=== PATIENT | male | born 1955 | race Caucasian/White ===

== ENCOUNTER 2023-10-05 13:50 | Inpatient (IN) | payer MEDICARE, SELFPAY ==
[2023-10-05] VITALS (26 sets, daily range): BP systolic 84–105; BP diastolic 62–73; BMI 17.5; BMI 17.3
[2023-10-05 10:16] LABS: Glucose - Point of Care 75 mg/dl (70-99)
--- NOTE | 2023-10-05 10:32 | CON.NEURO4 ---
Addendum entered and electronically signed by Bill Aguilar MD 10/05/23 12:17:
Studies reviewed.
I have personally examined the patient. I reviewed and agree with the FILM WRITER's Note.
My addenda:
Not awake, not alert, interactive on a single-occasion with rigorous stimulation to follow one request. No acute distress.
Speech: mute
Follows 1-step requests w/ difficulty. No tremor.
Extra-ocular movements: negative Doll's eyes.
Facial movements full and symmetric. Hearing intact to normal conversational volume.
Normal UE movements bilaterally. Minimal withdrawal to pain
Neck: full ROM.
Chest: no dyspnea
Heart: no JVD
Ext: (-) Clubbing, (-) Cyanosis, (-) Edema
IMPRESSIONS/RECOMMENDATIONS:
Abrupt onset of change in mental status. Undoubtably due to a metabolic cause either infectious or metabolic
check blood work and urinalysis for potential causes
no indication at this time for EEG, additional neuroimaging
hold sedative medications including Gabapentin, for now
Will continue to follow patient as needed.
Original Note:
Documented by User: Mariely Huang NP 10/05/23 11:39
Consultation - Neurology 4
-
CONSULTING PHYSICIAN: Bill Aguilar MD
REFERRING PHYSICIAN: ER/Dr. Villagran
DICTATED BY: PAMELA Brown
DATE/TIME OF REQUEST: 10/05/23
DATE/TIME OF CONSULTATION: 10/05/23
Reason for Consultation: Stroke Alert
History of Present Illness:
This is a 68-year-old male who has presented to the hospital after being found unresponsive on the ground by his family. LNW last night before bed (10/04/23). A stroke alert was activated in the ER due to unresponsiveness. CT head was obtained and
is negative for any acute abnormalities. Patient 'woke up' on the CT scan table and is now still very lethargic but able to follow simple commands. ER VS: 95.8 F, HR 65, BP 90/70, RR 12, 99% RA. ER Labs: WBC 1.7, Na 128, glucose 75. He has a history
of head/neck cancer and was using a Fentanyl patch and oxycodone, per PDMP, these were last filled 11/2021. He is only taking Remeron at bedtime occasionally now. An empty, unlabeled pill bottle was found in his pocket by nursing staff. He has a
history of DVT but is no longer on Eliquis for this. He has no known history of TIA or stroke, and he is not taking any blood thinning medications.
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
Surgical History: Lymphectomy
Family History: Reviewed and noncontributory.
Social History: Unknown.
Allergies: No known allergies.
Home Medications: See below.
Review of Symptoms:
Per the HPI. I am unable to obtain a complete review of systems�because of patient's inability to provide history.
Physical Exam:
The patient is afebrile, abdomen is flat, breathing is unlabored, skin is cool and dry, no edema.
NIH Stroke Scale:
I performed the NIH stroke scale on the patient on 10/05/23 at 1015. The patient scored 11 points on the NIH stroke scale assessment, which were assigned as follows: See below.
Neurologic Examination:
The patient is obtunded, responds to pain/loud voice. No verbal response. Follows a rare one-step command. On cranial nerve assessment, pupils are 4 mm bilateral, round and sluggish to light and accommodation. Negative dolls eyes. Gaze is midline.
EMIGDIO visual espinosa and EOMs. There is no facial asymmetry at rest. EMIGDIO tongue and uvula. Lifts bilateral upper extremities antigravity, no drift. Spontaneously moves bilateral lower extremities antigravity. No involuntary movement noted. Deep tendon
reflexes are 2+ bilateral upper and lower extremities and Babinski is absent bilaterally. EMIGDIO sensation and coordination.
Lab Results: See below.
Neuro Imaging:
1. CT Head 10/05/23: No acute intracranial abnormality identified. ASPECTS score 10.
Differentials for the patient's presentation include:
1. Toxic metabolic encephalopathy likely producing patient's symptomatology.
2. Very low concern for stroke producing patient's symptoms.
Patient has the following risk factors for their symptoms: Cancer, Remeron usage
IV Tenecteplase/IAT candidacy: Not a candidate due to unclear diagnosis, symptoms not consistent with stroke.
Recommendations:
-Urine drug screen, UA, alcohol level pending.
-Supportive care per ER.
-Do not see a role for further neurological imaging, if no improvement in mental status, will reconsider.
Discussed patient care with: Dr. Aguilar, Dr. Villagran
Vital Signs and Labs
-
Vital Signs and Labs:
Vital Signs
Temp Pulse Resp BP Pulse Ox
95.8 F L 65 12 90/70 99
10/05/23 10:31 10/05/23 10:08 10/05/23 10:08 10/05/23 10:08 10/05/23 10:08
Medications
-
Home Medications
Medication Instructions Recorded
fentanyl 25 mcg/hr transdermal 25 mcg transdermal Q72H Pain 11/10/21
patch
gabapentin 300 mg/6 mL (6 mL) oral 18 ml PO TID Pain 11/10/21
solution
oxycodone 5 mg/5 mL oral solution 5 mg PO Q4HPRN PRN breakthrough 11/10/21
pain
NIH Stroke Score
Subsequent NIH Scale
Date of Subsequent NIH Scale: 10/05/23
Time of Subsequent NIH Scale: 10:15
NIH Stroke Score
Level of Consciousness: 2 - Obtunded
LOC Questions: 2-Neither correct
LOC Commands: 2-Performs neither correctly
Best Horizontal Gaze: 0-Normal
Visual [place]spinosa: 0=Normal, no visual loss
Facial Palsy: 0=Normal, symmetrical
Motor - Right Arm: 0=No drift 10 seconds
Motor - Left Arm: 0=No drift 10 seconds
Motor - Right Le-Drift < 5 seconds
Motor - Left Le-Drift < 5 seconds
Limb Ataxia: UN-Amputation/jointfusion
Sensation: 0-Normal
Best Language: 3-Mute/global aphasia
Dysarthria: UN-Intubated, other
Extinction and Inattention: 0-No abnormality
Total Score:: 11

Documented by User: Bill Aguilar MD 10/05/23 11:58
NIH Stroke Score
NIH Stroke Score
Total Score:: 11
--- NOTE | 2023-10-05 10:41 | ED.GENMED ---
History of Present Illness
General
Chief Complaint: Unresponsive
Source: patient
Exam Limitations: none
Time Seen by Provider: 10/05/23 10:12
Nursing documentation reviewed up to this point in time: agreed with
Travel History
Have you had any contact with someone who has COVID-19?: No
Do you have any symptoms of coronavirus? Fever > 100 degrees, chills, cough, shortness of breath, sore throat, loss of taste or smell, muscle aches, or headache?: No
History of Present Illness
History of Present Illness:
68-year-old male presents emergency department due to decreased responsiveness.
Past History
Past History
ED Past Medical History: Cancer (head and neck)
ED Past Surgical History: Other (PEG tube, port placed)
Social History
Tobacco: Non-smoker
Alcohol: None
Drug: None
Personal:
Living: with family
Review of Systems
Review of Systems
Allergies reviewed?: Yes
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
All Other Systems: Not applicable
Phy Exam
Physical Exam
Physical Exam:
Physical Exam
General: Obtunded, not responsive but occasionally moving and fighting against medical therapies
Neck: supple. no meningeal signs. normal posterior pharynx
Heart: s1/s2 regular rate and rhythm, no murmur. equal radial
pulses.
HEENT: Pupils equal round reactive to light, EOMI
Lungs: no acute respiratory distress. clear bilaterally
Abdomen: normal bowel sounds. not tender. no CVAT
Neuro: Obtunded, moving all extremities. No focal neurological deficits cranial nerves II through XII intact
Skin: no rash
Psychiatric: well kept.
Extremities: no edema. no calf tenderness. negative homans. good distal pulses
Course
Orders/Labs/Results
Orders:
Orders
10/05/23 Lunch
NPO
Allow oral meds: No
Allow clear liquids: No
NPO with Ice Chips: No
10/05/23 10:13
Electrocardiogram (*1) Urgent
Reason for Study: Bradycardia / Tachycardia
CT Head W/o Cont STROKE ALERT Urgent
Reason For Exam: unresponsive since this morning.
10/05/23 10:14
EKG- Treatment ONCE
10/05/23 10:19
Alcohol Urgent
Complete Blood Count/With Diff Urgent
Comprehensive Metabolic Panel Urgent
Cortisol, Random Urgent
Comment: ADD
Free T4 Urgent
Prothrombin Time Urgent
Serum Osmolality Urgent
TSH Reflex To Free T4 Urgent
Comment: ADD
10/05/23 10:57
0.9% Sodium Chloride 1000 ml [Nss] 1,000 ml IV BOLUS
10/05/23 11:15
Fentanyl, Urine Urgent
Lactic Acid Q4H
Comment: ON ICE, CANCEL 2ND ORDER IF FIRST LACTIC ACID LEVEL <2
Osmolality, Random Urine Urgent
Date Specimen was Collected: 10/05/23
Time Specimen was Collected: 10:42
Comment: ADD
Urinalysis Reflex To Culture Urgent
Date Specimen was Collected: 10/05/23
Time Specimen was Collected: 10:42
Urine Drug Abuse Screen Urgent
Date Specimen was Collected: 10/05/23
Time Specimen was Collected: 10:42
Urine Sodium Urgent
Date Specimen was Collected: 10/05/23
Time Specimen was Collected: 10:42
Comment: ADD
10/05/23 12:38
Add On- LAB Urgent
Tests Added?: tsh with free t4,urine na, urine osmo, serum osmo,random cortisol
Blood Culture Q30M
ROBSON Source: Blood/Venous
Specimen Description:
Comment: FROM 2 SEPARATE SITES
10/05/23 12:39
Blood Culture Q30M
[facility] Source: Blood/Venous
Specimen Description:
Comment: FROM 2 SEPARATE SITES
10/05/23 12:41
Add On- LAB Urgent
Tests Added?: alcohol
10/05/23 13:22
HEMATOLOGY CONSULT Routine
Consulting Provider: Mirian Andrade
Was physician already notified: Yes
Reason for consult: Acute leukopenia, possible sepsis, history head and neck cancer
NEPHROLOGY CONSULT Routine
Consulting Provider: Ricky Moses
Was physician already notified: Yes
Reason for consult: Hyponatremia, hypotension, possible sepsis
PSYCHIATRY CONSULT Routine
Consulting Provider: Homero Kong
Was physician already notified: Yes
Reason for consult: Failure to thrive, depression also here with possible sepsis, hypotension
COVID-19 Antigen Urgent
Source: Nasal Swab
Influenza A+B Rapid Molecular Urgent
RO[facility]ON Source: Nasal Swab
Specimen Description:
10/05/23 13:27
Admit/Transfer Patient As Directed
Co-Sign Provider:
Level of Care: Inpatient admission
Assign to:: IMU- Intermediate Care
Physician / Group: larry montaño
Diagnosis: Leukopenia possible sepsis, unresponsive possible benzo use, hypoNA , FTT
Reason for Hospitalization: Leukopenia possible sepsis, unresponsive possible benzo use, hypoNA , FTT
Expected length of stay greater than two midnights?: Yes
ELOS- Estimated Length of Stay in days: 4
I certify the patient meets the requirements for IP care: Yes
Code Status As Directed
Resuscitation Status: Full Code
10/05/23 13:30
0.9% Sodium Chloride 1000 ml [Nss] 1,000 ml IV 1,000 mls/hr
CR Chest Portable - 1 View Urgent
Comment:
Reason For Exam: Unresponsive possible sepsis
Reason Study Needs to be Portable: Patient Unstable
10/05/23 14:26
Activity As Directed
Activity Level: As Tolerated
Advance Diet as Tolerated As Directed
Goal Diet: Regular
Comment: when pt is more alert do bedside swallow then may advance as tolerated
Intake/ Output As Directed
Frequency: Per unit guidelines
Pneumatic Compression Sleeves As Directed
Type: Knee high
Vital Signs As Directed
Frequency: Per unit guidelines
Weight As Directed
Frequency: Daily
Pulse Ox/spot Check [RESP] Routine
Quantity: 1
Ot Eval And Treat Routine
Pt Eval And Treat Routine
Activity Level: As Tolerated
DX Deep Vein Thrombosis Video Routine
10/05/23 14:30
Lactic Acid Q4H
Comment: ON ICE, CANCEL 2ND ORDER IF FIRST LACTIC ACID LEVEL <2
10/06/23 06:00
Complete Blood Count/With Diff IN AM
Comprehensive Metabolic Panel IN AM
10/06/23 09:00
DIETARY CONSULT Routine
Reason for Consult: wt loss ftt
10/07/23 06:00
Complete Blood Count/With Diff IN AM
Comprehensive Metabolic Panel IN AM
10/08/23 06:00
Complete Blood Count/With Diff IN AM
Comprehensive Metabolic Panel IN AM
Abnormal Lab Results
10/05/23 10/05/23
10:19 11:15
WBC 1.7 L* 10^3/uL
(4.8-10.8)
RBC 3.70 L 10^6/uL
(4.70-6.10)
Hgb 11.8 L g/dL
(13.0-18.0)
Hct 32.3 L %
(39.0-52.0)
MCH 31.9 H pg
(27.0-31.0)
Plt Count 119 L 10^3/uL
(130-400)
Absolute Neuts (auto) 1.0 L 10^3/uL
(1.4-6.5)
Absolute Lymphs (auto) 0.4 L 10^3/uL
(1.2-3.4)
Immature Gran % 1.8 H %
(0-0.5)
Monocytes % 10.9 H %
(1.7-9.3)
PT 15.3 H Sec
(11.4-14.6)
Sodium 128 L mmol/L
(135-145)
Chloride 94 L mmol/L
(98-107)
Serum Osmolality 274 L mOsm/kg
(275-300)
Alkaline Phosphatase 34 L U/L
(38-126)
Total Protein 4.9 L g/dl
(6.3-8.2)
Albumin 2.9 L g/dl
(3.5-5.0)
TSH (Reflex) 5.02 H uIU/ml
(0.47-4.68)
Urine Ketones 1+ A
(Negative)
Urine Sodium 10 L mmol/L
(30-90)
U Benzodiazepines Scrn Positive H
(Negative)
10/05/23 10:19
10/05/23 10:19
Vital Signs
Initial and Last Documented VS:
Initial Vital Signs
Pulse Resp BP Pulse Ox
65 12 90/70 99
10/05/23 10:08 10/05/23 10:08 10/05/23 10:08 10/05/23 10:08
Last Documented Vital Signs
Temp Pulse Resp BP Pulse Ox
94.6 F L 44 9 92/66 99
10/05/23 14:51 10/05/23 15:00 10/05/23 15:00 10/05/23 14:51 10/05/23 15:00
MDM/Problems Addressed
Differential Diagnosis Includes:
Overdose, infection, hyponatremia
MDM/Problems Addressed:
68-year-old male with hyponatremia, hypotension, depression, head neck cancer in remission, neutropenia. Admit to hospitalist.
Chronic conditions affecting care: Cancer (Head neck cancer) and Other (Neutropenia)
Acute Exacerbation and/or Progression of Chronic Illness: Cancer (Head neck cancer) and Other (Neutropenia)
*Radiology
Radiology exam reviewed: radiology read reviewed (CT head no acute findings)
*Pulse Oximetry
Patient hypoxic: no
*EKG
Interpreted by ED Provider?: Yes
EKG Intrepretation Date: 10/05/23
EKG Intrepretation Time: 10:10
Interpretation: normal
Comparison EKG: no comparison EKG present
Heart Rate: 63
Rate: normal
Rhythm: sinus
[place]: left axis deviation
Interval: normal interval
QRS Pattern: normal QRS
Ischemia: no ischemia
*Talent Consultant Interpretation
Rate: normal
Interpretation: normal
Heart Rate: 61
Rhythm: sinus
*Critical Care Note
Total Time (30-74mins, 75-104mins- exclusive of procedures): 30
comment:
Critical care statement: A total of 30 minutes of critical care time was provided for this patient. This includes management of unstable vital signs, evaluation of the patient at bedside, reviewing the patient's pertinent medical records, discussion
with consultants, review of old EKGs and review of pertinent medical records. This time with separate from time utilized to perform the aforementioned documented procedures
Data Reviewed
Review of Other/Old Records Reveals: Labs (Prior WBC 3.2)
Source: records
Patient Management
Social determinants of health affecting care: Living situation
Discussion with other providers: Hospitalist
Escalation/DeEscalation of care consider admission/obs:
Admit indicated
ED Attending Note
-
Portions of this chart may have been created with voice recognition software.� Occasional wrong word or��sound alike� substitutions may have occurred due to the inherent limitations of voice recognition software.
Discharge Plan
Departure
Patient Disposition: Admit
Date of Disposition: 10/05/23
Time of Disposition: 11:40
Admit to: ICU
Presentation/result/management discussed w/ accepting MD/DO: Hospitalist
Patient with high blood pressure during this ER visit?: No
Condition: Fair
Discharge Problem:
Acute alteration in mental status, Leukopenia, Hypothermia, Acute hyponatremia
Interventions
Interventions:
*Risk Screen - Suicide Last Done: 10/05/23 10:08
*General Assessment Last Done: 10/05/23 10:08
*Neglect/Abuse Screening Last Done: 10/05/23 10:08
*Nursing Disposition Last Done: 10/05/23 14:31
ED- Neurological Assessment Last Done: 10/05/23 10:29
Discharge Date and Time
Discharge Date/Time: 10/05/23 14:32
[2023-10-05 10:43] LABS: INR 1.18; PT 15.3 Sec (11.4-14.6)
[2023-10-05 10:44] LABS: ALT (SGPT) 19 U/L (0-50); AST (SGOT) 36 U/L (17-59); Albumin 2.9 g/dl (3.5-5.0); Alkaline Phosphatase 34 U/L (38-126); Blood Urea Nitrogen 14 mg/dl (9-20); Calcium 8.6 mg/dl (8.4-10.2); Carbon Dioxide 30 mmol/L (22-30); Chloride 94 mmol/L (98-107); Glucose 70 mg/dl (70-99); Potassium 3.7 mmol/L (3.5-5.1); Sodium 128 mmol/L (135-145); Total Bilirubin 0.9 mg/dl (0.2-1.3); Total Protein 4.9 g/dl (6.3-8.2); eGFR > 60.00
[2023-10-05 10:50] LABS: % Basophils 1.2 % (0-2); % Eosinophils 1.8 % (0-6); % Immature Granulocytes 1.8 % (0-0.5); % Lymphocytes 21.2 % (20.5-51.1); % Monocytes 10.9 % (1.7-9.3); % Neutrophils 63.1 % (42.2-75.2); Absolute Lymphocytes 0.4 10^3/uL (1.2-3.4); Absolute Monocytes 0.2 10^3/uL (0.1-0.6); Hematocrit 32.3 % (39.0-52.0); Hemoglobin 11.8 g/dL (13.0-18.0); Mean Corp Hgb Conc. 36.5 g/dL (33.0-37.0); Mean Corpuscular Hgb 31.9 pg (27.0-31.0); Mean Corpuscular Volume 87.3 fL (80.0-94.0); Mean Platelet Volume 9.9 fL (7.4-10.4); Nucleated Red Blood Cells % 0 % (-); Platelet Count 119 10^3/uL (130-400); Red Cell Dist. Width 13.2 % (11.5-14.5)
[2023-10-05 10:57] LABS: White Blood Cell Count 1.7 10^3/uL (4.8-10.8)
[2023-10-05] MEDS: NSS 1000 IV (11:18)
[2023-10-05 11:50] LABS: Urine Albumin Negative (Neg - Trace); Urine Bilirubin Negative (Negative); Urine Character Clear (Clear); Urine Color Yellow; Urine Glucose Negative (Negative); Urine Ketone 1+ (Negative); Urine Leukocyte Negative (Negative); Urine Nitrite Negative (Negative); Urine Occult Blood Negative (Negative); Urine Urobilinogen Negative (Neg - 1+); Urine pH 6.5 (5.0-9.0)
[2023-10-05 12:04] LABS: Amphetamines Negative (Negative); Barbiturates Negative (Negative); Benzodiazepines Positive (Negative); Buprenorphine Negative (Negative); Cocaine Negative (Negative); Marijuana Negative (Negative); Methadone Negative (Negative); Methamphetamines Negative (Negative); Opiates Negative (Negative); Phencyclidine Negative (Negative); Tricyclic Antidepressants Negative (Negative)
--- NOTE | 2023-10-05 12:36 | HPS.HSE ---
Addendum entered and electronically signed by Ahsan Mcmillan MD 10/05/23 21:11:
I independently saw and examined the patient on 10/05/23.
The GRAIN PROCESSOR's note was reviewed and I agree with the note.
Comment:
68-year-old male with past medical history of early stage head/neck cancer, treated with cisplatin/RT in early 2021 (JOSE since), previous PEG placement (PEG tube was reversed, now able to take PO), nasal bone fracture September 28, 2023, Hx DVT LLE
(no longer on Eliquis), depression, HLD, hypomagnesemia, anemia, leukopenia and major depression presented after being found unresponsive by his family. A stroke alert was called in the ER, but when patient was in the CT scan department he
apparently woke up for a little. Patient was also found to have bradycardia and low blood pressure after admission, which patient's family said is from before. He was given atropine and Narcan en route to the hospital but remained mainly
unresponsive. He was also noted to be hypothermic 95.8 F. Patient's reported that patient is drinking 2 ensures per day and eating a total of 2400 fredy although is continuing to lose weight with an additional 20 pounds over the last 3 months and
a total of 54 pounds in the past 7 months and he has a lack of interest in bathing showering and any socialization. Patient is not on any benzodiazepines, but his has a prescription for Xanax he knows where it is located and possibly could have
taken last night.
Vital Signs: Hypothermic, Bradycardia at times in the 40s and 50s bpm, SBP in the 80s and 90s, 90-100% on room air
Physical Exam
General: Other (Unresponsive)
HEENT: Normocephalic
Respiratory: Clear
Cardiac: S1/S2 and Bradycardia
GI: Soft, Non Tender, Non Distended, Hypoactive bowel sounds
Musculoskeletal: No Cyanosis and No Edema
Skin: Warm, Dry and Rash (Seborrheic dermatitis to scalp and chest)
Neuro: Other (Unresponsive)
Assessment/Plan
#Acute Toxic Metabolic Encephalopathy Suspected due to Benzodiazepene vs. other
#Hypothermia
#Hypotension
#Pancytopenia
WBC 1.7, differential pending, PLT 117
95.8 F, 90/68, HR 53, 96% RA
-Blood cultures x 2, UA and CXR unrevealing for infection
-give total 2000 cc bolus(patient received 1 L by EMS and 1 L in ER) will continue IV NSS 80 cc an hour is still is hypotensive
-Loni hugger
-Follow CBC, BMP
-Consult Onc
-Hold on sedative medications
-Monitor closely in IMU
#Unresponsive possibly secondary to benzodiazepine use
Benzodiazepine use on urine drug screen
- UDS + for benzos
-Neurochecks every [address] head: No acute intracranial abnormality
#Failure to thrive with weight loss
# Acute on chronic depression
Hold mirtazapine 15 mg at bedtime due to unresponsiveness
-Weight loss 20 pounds in the last 3 months and 52 pounds since November 2021 was 181 LBS now 129.3 LBS
- reports is eating 2400 fredy with 2 ensures
-Consult Psychiatry when patient is awake
#Hyponatremia
NA 128
Check TSH with free T4 reflex, urine NA, urine Osmo, serum Osmo, random cortisol
-Consult Nephro
#Seborrheic dermatitis to scalp and chest secondary to not bathing
- reports patient is very depressed and refuses to shower
-Recommend Selsun Blue to hair and chest for or patient to use with soft bristle brush
-Recommend shower chair
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
#Treated with chemo 8 rounds and radiation 35 rounds-finished in 2021
#Had resection of squamous cell carcinoma oropharynx at [facility]
-Follows with Dr. Davies
CT chest abdomen pelvis with IV contrast 09/29/2023
No evidence of metastatic disease or adenopathy in the chest abdomen or pelvis
Large volume feces throughout the colon and rectum suggesting constipation
DDD C7-T1, L2-3 and L3-4
#Dysphagia Hx
Hx PEG tube November 2021 with removal November 2022
-Eats regular diet with 2 Ensure per day
-Consult dietary
#Recent nasal bone fracture from fall
#History of DVT LLE (no longer on Eliquis)
#Hyperlipidemia
#History of Hypomagnesemia
DVT prophylaxis
SCDs
Full code per Tiffanie at bedside
Original Note:
Family Physician
-
Family Physician: INTERVIEWE UNKNOWN - PT NOT
Chief Complaint
-
Unresponsive
History of Present Illness
68-year-old male from home brought by EMS for unresponsiveness and bradycardia. He was given atropine and Narcan en route but remains unresponsive. He was noted to be hypothermic 95.8 F in the ER hypotensive
90/58 and bradycardic with a heart rate of 53. His Tiffanie is at bedside and states that he has been taking Remeron at night to help him sleep but also help with his depression and increased his appetite. She reports he is drinking 2 ensures
per day and eating a total of 2400 fredy although is continuing to lose weight with an additional 20 pounds over the last 3 months and a total of 54 pounds in the past 7 months. He has lack of interest in bathing showering and any socialization. His
urine drug screen did come back for positive benzos. He is not on any benzodiazepines, but his has a prescription for Xanax he knows where is located and possibly could have taken last night. He had a recent CT chest abdomen and pelvis a week
ago that was negative for metastatic disease he has past medical history of head and neck cancer, 8 rounds of chemo and 35 rounds of radiation major depressive disorder, dysphagia requiring PEG tube placement November 2021 with removal 2022 HLD, nasal
bone fracture September 28, 2023, hypomagnesemia.
Medical History
Past Medical History
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
2022 HLD, nasal bone fracture September 28, 2023, hypomagnesemia)
Past Surgical History: Reports Other (PEG tube insertion November 2021 with removal 2022)
Social History
Tobacco: Non-smoker
Alcohol: None
Drug: None
Personal:
Living: With Family
Employment: Retired
Family History
Family History: Unable to Obtain
Allergies / Home Medications
Allergies reflects when Allergies were last updated in [facility].
Home Medications with original date entered in [facility]
Allergy/Medication List:
Allergies
Allergy/AdvReac Type Severity Reaction Status Date / Time
No Known Allergies Allergy Unverified 08/19/23 19:21
Home Medications
Isotonix Antioxidant Powder 1 dose PO DAILY 10/05/23
Isotonix B-Complex Powder 1 dose PO DAILY 10/05/23
Isotonix Calcium Plus Powder 1 dose PO DAILY 10/05/23
Isotonix Multivitamin Powder 1 dose PO DAILY 10/05/23
Isotonix Vitamin D3 Powder 1 dose PO DAILY 10/05/23
mirtazapine 15 mg tablet 15 mg PO HS 10/05/23
polyethylene glycol 3350 17 gram oral powder packet (Miralax) 17 g PO DAILY PRN constipation 10/05/23
Review of Systems
-
History Source: Family ( Tiffanie at bedside giving review of systems)
A 12 point ROS was completed and negative except as noted: Yes
Constitutional: Reports Fever (Hypothermia), Fatigue and Chills
EENT: Denies Sore Throat or Runny Nose
Respiratory: Denies Cough or Trouble Breathing
Cardiac: Denies Chest Pain, Diaphoresis or Syncope
Abdomen/GI: Denies Abdominal Pain, Nausea, Vomiting or Diarrhea
: Denies Dysuria, Frequency, Flank Pain or Incontinence
Musculoskeletal: Denies Joint Pain or Edema
Skin: Reports Rash (Seborrheic dermatitis to scalp and chest); Denies Itching
Neurological: Reports Weakness (Generalized); Denies Dizzy or Headache
Endocrine: Reports No Symptoms
Hematologic/Lymphatic: Reports No Symptoms
Psych: Reports Depression ( reports is depressed lack of bathing showering lack of interest in activities, weight loss)
Physical Exam
Vital Signs
Vital Signs
Temp Pulse Resp BP Pulse Ox
95.8 F L 53 8 90/68 96
10/05/23 10:31 10/05/23 11:15 10/05/23 10:28 10/05/23 11:15 10/05/23 10:49
Physical Exam
General: Other (Unresponsive)
HEENT: NormoCephalic, Anicteric, PERRLA (4 mm bilaterally), [place] Conjunctivae and No Ptosis
Respiratory: Clear; No Wheezes, Rales or Rhonchi
Cardiac: S1/S2 and Bradycardia; No Murmur, Rub, Gallop or Peripheral Edema
Breast: Deferred by me
GI: Soft, Non Tender, Non Distended, Normal Bowel Sounds and No Hepatosplenomegaly
Rectal: Deferred by Provider
Genito-urinary: Deferred by me
Musculoskeletal: No Clubbing, No Cyanosis and No Edema
Skin: Warm, Dry and Rash (Seborrheic dermatitis to scalp and chest)
Neuro: Other (Unresponsive, obtunded); No Tremors
Psych: Depressed (Per ) and Other (Unresponsive)
Laboratory Results
-
10/05/23 10:19
10/05/23 10:19
Laboratory Results
PT 15.3 Sec (11.4-14.6) H 10/05/23 10:19
INR 1.18 10/05/23 10:19
Lactic Acid 1.0 mmol/L (0.7-2.0) 10/05/23 11:15
Total Bilirubin 0.9 mg/dl (0.2-1.3) 10/05/23 10:19
AST 36 U/L (17-59) 10/05/23 10:19
ALT 19 U/L (0-50) 10/05/23 10:19
Alkaline Phosphatase 34 U/L (38-126) L 10/05/23 10:19
Impression/Plan
-
Impression/plan:
Admit to [facility]
#Sepsis with acute hypothermia unclear source
#Acute on chronic neutropenia/chronic thrombocytopenia
WBC 1.7, differential pending, PLT 117
95.8 F, 90/68, HR 53, 96% RA
-Blood cultures x 2, UA [employer], CXR
-give total 2000 cc bolus(patient received 1 L by EMS and 1 L in ER) will continue IV NSS 80 cc an hour is still is hypotensive
-Consider Loni hugger
-Follow CBC, BMP
-Consult Onc
-Hold on current antibiotics until possible source of infection is found
EKG: NSR 63 bpm, QTc 474 MS
#Unresponsive possibly secondary to benzodiazepine use
Benzodiazepine use on urine drug screen
- UDS + for benzos
-Neurochecks every [address] head: No acute intracranial abnormality
#Failure to thrive with weight loss
# Acute on chronic depression
Hold mirtazapine 15 mg at bedtime due to unresponsiveness
-Weight loss 20 pounds in the last 3 months and 52 pounds since November 2021 was 181 LBS now 129.3 LBS
- reports is eating 2400 fredy with 2 ensures
-Consult Psychiatry when patient is awake
#Hyponatremia
NA 128
Check TSH with free T4 reflex, urine NA, urine Osmo, serum Osmo, random cortisol
-Consult Nephro
#Seborrheic dermatitis to scalp and chest secondary to not bathing
- reports patient is very depressed and refuses to shower
-Recommend Selsun Blue to hair and chest for or patient to use with soft bristle brush
-Recommend shower chair
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
#Treated with chemo 8 rounds and radiation 35 rounds-finished in 2021
#Had resection of squamous cell carcinoma oropharynx at [facility]
-Follows with Dr. Davies
CT chest abdomen pelvis with IV contrast 09/29/2023
No evidence of metastatic disease or adenopathy in the chest abdomen or pelvis
Large volume feces throughout the colon and rectum suggesting constipation
DDD C7-T1, L2-3 and L3-4
#Dysphagia Hx
Hx PEG tube November 2021 with removal November 2022
-Eats regular diet with 2 Ensure per day
-Consult dietary
#Nasal bone fracture August 2023 from fall
DVT prophylaxis
SCDs
Full code per Tiffanie at bedside
[2023-10-05 13:00] LABS: Fentanyl, Urine Negative (Negative)
[2023-10-05 13:45] LABS: COVID-19 Antigen Negative (Negative)
[2023-10-05 13:54] LABS: Urine Sodium 10 mmol/L (30-90)
[2023-10-05 14:00] LABS: Alcohol None Detected
--- NOTE | 2023-10-05 14:13 | CON.ONC ---
Impression
Impression
* Unresponsive; sepsis and/or benzodiazepine overuse
* Pancytopenia
* Failure to thrive
* Oropharyngeal squamous cell carcinoma, in remission
Plan
Plan
Unresponsive; sepsis and/or benzodiazepine overuse
- Urine benzodiazepine screen was positive on admission on 10-05-23.
- Staff found an empty pill bottle in his pocket when he was brought in.
- He has been hypothermic, bradycardic and hypotensive since admission.
- He does not have a prescription for a benzodiazepine and only takes mirtazapine at bedtime to help him fall asleep.
- His reports that he has experienced a similar episode of unresponsiveness in 2018, when he took too much of Ativan 'to help him sleep'.
- His does have a prescription for Xanax, which he has access to.
- Of note, per PDMP, he was previously using a fentanyl patch and oxycodone last filled in 11/2021.
- Urine BZD screens have poor sensitivity and specificity for BZD toxicity.
- Pending blood culture results.
Pancytopenia
- WBC 1.7, RBC 3.7, HGB 11.8, PLT 119 on admission.
- He has a history of intermittent pancytopenia since at least 2021.
- Pancytopenia can be exacerbated in setting of sepsis/infection; pending blood cultures.
- Failure to thrive possibly contributory.
- Follow CBC.
Failure to thrive
- He developed dysphagia, likely a sequelae from treatment of the SCC.
- He has had a loss of appetite and progressive weight loss since at least 2017.
- He has lost around 20 pounds over the last 3 months; a total of 54 pounds in the past 7 months.
- He drinks 2 ensures per day, and tries to consume about 2400 fredy but has continued to lose weight.
- He is unable to tolerate solid foods and foods with certain textures, and has a limited diet.
- He was hospitalized for significant protein calorie malnutrition in 2021 and required a PEG tube placement for dysphagia (removed in 2022).
- Dysphagia has persisted, and he has to make an active effort to swallow food according to the .
- Can consider placing the PEG tube again when stable.
Oropharyngeal squamous cell carcinoma, in remission
- He underwent 8 rounds of chemo and 35 rounds of radiation for the squamous cell carcinoma.
- Resection at [facility].
- CT CAP from 09-29-23 did not demonstrate any evidence of metastatic disease or adenopathy, and continues to be in remission.
Patient History
History of Present Illness
Fernando Yeung, 68 year-old male, was brought to the emergency on 10-05-23 after he was found unresponsive in the morning. He was noted to be hypothermic, hypotensive and bradycardic. Received atropine and naloxone en route to the hospital but
remained unresponsive. Urine benzodiazepine screen was positive, and CT head was unremarkable. His medical history is significant for oropharyngeal squamous cell carcinoma in remission. He had an empty pill bottle in his pocket when he was brought
in. He does not have a prescription for a benzodiazepine and only takes mirtazapine at bedtime to help him fall asleep. His reports that he has experienced a similar episode of unresponsiveness in 2018, when he took too much of Ativan 'to help
him sleep'. His has a prescription for Xanax; he knows where it is located and she is not sure if he took some. He was using a fentanyl patch and oxycodone, per PDMP, which were last filled in 11/2021.
He has had a loss of appetite and progressive weight loss since at least 2017. This has gotten considerably worse in the past few months. He has lost around 20 pounds over the last 3 months; a total of 54 pounds in the past 7 months. He drinks 2
ensures per day, and tries to consume about 2400 fredy but has continued to lose weight. He is unable to tolerate solid foods and foods with certain textures, and has a limited diet. He was hospitalized for significant protein calorie malnutrition in
2021 and required a PEG tube placement for dysphagia (removed in 2022). Dysphagia has persisted, and he has to make an active effort to swallow food according to the . He underwent 8 rounds of chemo and 35 rounds of radiation for the squamous
cell carcinoma. CT CAP from 09-29-23 did not demonstrate any evidence of metastatic disease or adenopathy, and continues to be in remission. He has had intermittent pancytopenia since at least 2021, and was pancytopenic on admission.
Past-Medical/Surgical History
PMH: oropharyngeal squamous cell carcinoma, anemia, leukopenia, major depression
PSH: PEG placement, SCC resection
Patient Medication
Medication Instructions Recorded Confirmed Last Taken Type
Isotonix Antioxidant Powder 1 dose PO DAILY Supplement 10/05/23 10/05/23 10/04/23 History
Isotonix B-Complex Powder 1 dose PO DAILY Supplement 10/05/23 10/05/23 10/04/23 History
Isotonix Calcium Plus Powder 1 dose PO DAILY Supplement 10/05/23 10/05/23 10/04/23 History
Isotonix Multivitamin Powder 1 dose PO DAILY Supplement 10/05/23 10/05/23 10/04/23 History
Isotonix Vitamin D3 Powder 1 dose PO DAILY Supplement 10/05/23 10/05/23 10/04/23 History
mirtazapine 15 mg tablet 15 mg PO Mental Health 10/05/23 10/05/23 Unknown History
polyethylene glycol 3350 17 gram 17 g PO DAILY PRN constipation 10/05/23 10/05/23 Unknown History
oral powder packet (Miralax)
Active Medications
Generic Name Dose Route Start Last Admin
Trade Name Freq PRN Reason Stop Dose Admin
Sodium Chloride 1,000 mls @ 80 mls/hr 10/05/23 14:15
Nss IV
.[id number] ALEX
Review of Systems
-
Unable to obtain full review of systems at this time due to: Other (patient unresponsive)
History Source: Family ()
Constitutional: Reports Weight Loss, No Appetite, Fatigue and Sleep Disturbance
GI: Reports Anorexia
Skin: Reports Itching and Rash
Psych: Reports Depressed and Sad
Physical Exam
-
General: Appears Chronically Ill and Cachetic
HEENT: Moist Mucous Membranes
Cardiology: Normal Sinus Rhythm, S1, S2 and No Murmur
Pulmonary: Clear
GI: Soft
Musculoskeletal: No Clubbing, No Cyanosis and No Edema
Neurology: Other (obtunded)
Skin: Rash (seborrheic dermatitis) and IV Access / Catheter Site
Psych: Depressed (per )
Labs
Lab Results
WBC 1.7 10^3/uL (4.8-10.8) L* 10/05/23 10:19
RBC 3.70 10^6/uL (4.70-6.10) L 10/05/23 10:19
Hgb 11.8 g/dL (13.0-18.0) L 10/05/23 10:19
Hct 32.3 % (39.0-52.0) L 10/05/23 10:19
MCV 87.3 fL (80.0-94.0) 10/05/23 10:19
MCH 31.9 pg (27.0-31.0) H 10/05/23 10:19
MCHC 36.5 g/dL (33.0-37.0) 10/05/23 10:19
RDW 13.2 % (11.5-14.5) 10/05/23 10:19
Plt Count 119 10^3/uL (130-400) L 10/05/23 10:19
MPV 9.9 fL (7.4-10.4) 10/05/23 10:19
Abs Immat Gran (auto) 0.0 10^3/uL (0-0.05) 10/05/23 10:19
Absolute Neuts (auto) 1.0 10^3/uL (1.4-6.5) L 10/05/23 10:19
Absolute Lymphs (auto) 0.4 10^3/uL (1.2-3.4) L 10/05/23 10:19
Absolute Monos (auto) 0.2 10^3/uL (0.1-0.6) 10/05/23 10:19
Absolute Eos (auto) 0.0 10^3/uL (0-0.7) 10/05/23 10:19
Absolute Basos (auto) 0.0 10^3/uL (0-0.2) 10/05/23 10:19
Immature Gran % 1.8 % (0-0.5) H 10/05/23 10:19
Neutrophils % 63.1 % (42.2-75.2) 10/05/23 10:19
Lymphocytes % 21.2 % (20.5-51.1) 10/05/23 10:19
Monocytes % 10.9 % (1.7-9.3) H 10/05/23 10:19
Eosinophils % 1.8 % (0-6) 10/05/23 10:19
Basophils % 1.2 % (0-2) 10/05/23 10:19
Creatinine 0.7 mg/dL (0.7-1.3) 10/05/23 10:19
Vital Signs
Vital Signs
Temp Pulse Resp BP Pulse Ox
95.8 F L 53 8 90/68 96
10/05/23 10:31 10/05/23 11:15 10/05/23 10:28 10/05/23 11:15 10/05/23 10:49
--- NOTE | 2023-10-05 14:21 | CON.MD ---
Consultation - Medical
-
Assessment
-hyponatremia
-hypotension
-FTT
-depression
-head and neck CA remission
-neutropenia
-recent nasal fracture
Plan
-D5NS, as hyponatremia appears to be hypovolemic due to low solute
-follow BMP
-If Na falls, can use 3%NaCl
-encourage po intake, may need evaluation for depression
-d/w
-[id number]
[2023-10-05 14:38] LABS: Osmolality Urine 472 mOsm/kg (300-900)
[2023-10-05 15:15] LABS: TSH Reflex To Free T4 5.02 uIU/ml (0.47-4.68)
[2023-10-05 15:16] LABS: Osmolality Serum 274 mOsm/kg (275-300)
[2023-10-05] MEDS: D5/0.9% SODIUM CHLORIDE 1000 IV (15:16)
--- NOTE | 2023-10-05 15:53 | PTCARENOTE ---
Received patient from ED. Patient minimally responsive. Patient opens eyes with voice. Trying to speak but speech is garbled, difficult to make out words. Rectal temp 94.6, bp 92/66,44, 9, 100% ra. Spoke to Ivon and nursing update give.
SB on monitor. Will continue to monitor frequently.
[2023-10-05 16:33] LABS: Free T4 1.03 ng/dl (0.78-2.19)
[2023-10-05 16:47] LABS: Cortisol, Random 13.9 ug/dl
--- NOTE | 2023-10-05 18:09 | PTCARENOTE ---
Patient continue with low temperature. Dr. Mcmillan notified and order obtained for temo mckinney. Last bp was 96.0 and obtained axillary and obtained under left arm.
--- NOTE | 2023-10-05 20:31 | PTCARENOTE ---
temp 98.4- bear hugger turned off- pt ax1- lethargic and minimally responsive- bp 88/69- sinus did answer basic questions regarding comfort after much encouragement- at bedside- support given
--- NOTE | 2023-10-05 23:53 | PTCARENOTE ---
pt waking up conversing. trying to figure out how he got here. at bedside with rn and slowly able to reorient him. remains lethargic- gets agitated with urination - attempt made t have him stand to use urinal but pt unable to stand or
ambulate- and was incontinent- attends changed . temp and bp now wnl
[2023-10-06] VITALS (17 sets, daily range): BP systolic 75–104; BP diastolic 54–80; PULSE 72–80; O2SAT 96; BMI 17.3
[2023-10-06] MEDS: D5/0.9% SODIUM CHLORIDE 1000 IV ×3 (02:11→20:03)
[2023-10-06 06:33] LABS: % Basophils 0.3 % (0-2); % Eosinophils 0.6 % (0-6); % Immature Granulocytes 0.3 % (0-0.5); % Lymphocytes 8.8 % (20.5-51.1); % Monocytes 7.7 % (1.7-9.3); % Neutrophils 82.3 % (42.2-75.2); Absolute Lymphocytes 0.3 10^3/uL (1.2-3.4); Absolute Monocytes 0.3 10^3/uL (0.1-0.6); Hematocrit 35.6 % (39.0-52.0); Hemoglobin 12.8 g/dL (13.0-18.0); Mean Corpuscular Hgb 31.8 pg (27.0-31.0); Mean Corpuscular Volume 88.6 fL (80.0-94.0); Mean Platelet Volume 9.4 fL (7.4-10.4); Nucleated Red Blood Cells % 0 % (-); Platelet Count 102 10^3/uL (130-400); Red Blood Cell Count 4.02 10^6/uL (4.70-6.10); Red Cell Dist. Width 13.2 % (11.5-14.5); White Blood Cell Count 3.6 10^3/uL (4.8-10.8)
[2023-10-06 06:59] LABS: ALT (SGPT) 20 U/L (0-50); AST (SGOT) 51 U/L (17-59); Albumin 2.7 g/dl (3.5-5.0); Alkaline Phosphatase 35 U/L (38-126); Blood Urea Nitrogen 8 mg/dl (9-20); Carbon Dioxide 29 mmol/L (22-30); Chloride 98 mmol/L (98-107); Estimated Creatinine Clearance 98 ml/min; Glucose 112 mg/dl (70-99); Potassium 3.5 mmol/L (3.5-5.1); Sodium 131 mmol/L (135-145); Total Bilirubin 0.9 mg/dl (0.2-1.3); Total Protein 4.8 g/dl (6.3-8.2); eGFR > 60.00
--- NOTE | 2023-10-06 08:59 | W.PN.ONC ---
Documented by User: Everette Townsend MD, Resident 10/06/23 09:16
Today's Communication / Plan
-
- Ordered iron studies, B12 and folate.
- Follow CBC.
Impression
Impression
* Unresponsive; benzodiazepine overuse vs other causes
* Pancytopenia
* Failure to thrive
* Oropharyngeal squamous cell carcinoma, in remission
Plan
Plan
Unresponsive; benzodiazepine overuse vs other causes
- Urine benzodiazepine screen was positive on admission on 10-05-23.
- Staff found an empty pill bottle in his pocket when he was brought in.
- He has been hypothermic, bradycardic and hypotensive since admission.
- He does not have a prescription for a benzodiazepine and only takes mirtazapine at bedtime to help him fall asleep.
- His reports that he has experienced a similar episode of unresponsiveness in 2018, when he took too much of Ativan 'to help him sleep'.
- His does have a prescription for Xanax, which he has access to.
- He was responsive while in the IMU but mostly unintelligible.
- Denies taking the Xanax or other benzodiazepines by shaking his head.
- Of note, per PDMP, he was previously using a fentanyl patch and oxycodone last filled in 11/2021.
- Urine BZD screens have poor sensitivity and specificity for BZD toxicity.
- Pending blood culture results.
Pancytopenia
- WBC 1.7, RBC 3.7, HGB 11.8, PLT 119 on admission.
- WBC count recovered on 10-06-23.
- Platelets 102 on 10-06-23.
- He has a history of intermittent pancytopenia since at least 2021.
- His current blood count has been within his usual range.
- Pancytopenia can be exacerbated in setting of infection/other stressors.
- Flu and COVID-19 tests were negative; pending blood cultures.
- Failure to thrive possibly contributory.
- Ordered iron studies, B12 and folate.
- Follow CBC.
Failure to thrive
- He developed dysphagia, likely a sequelae from treatment of the SCC.
- He has had a loss of appetite and progressive weight loss since at least 2017.
- He has lost around 20 pounds over the last 3 months; a total of 54 pounds in the past 7 months.
- He drinks 2 ensures per day, and tries to consume about 2400 fredy but likely getting much less since he has been tolerating progressively smaller portion sizes.
- He is unable to tolerate solid foods and foods with certain textures, and has a limited diet.
- He was hospitalized for significant protein calorie malnutrition in 2021 and required a PEG tube placement for dysphagia (removed in 2022).
- Dysphagia has persisted, and he has to make an active effort to swallow food according to the .
- Can consider feeding assistance with a tube vs TPN when stable.
- Would appreciate reevaluation from nutrition; probably needs increased calorie intake.
Oropharyngeal squamous cell carcinoma, in remission
- He underwent 8 rounds of chemo and 35 rounds of radiation for the squamous cell carcinoma.
- Resection at [facility].
- CT CAP from 09-29-23 did not demonstrate any evidence of metastatic disease or adenopathy.
- Continues to be in remission.
Subjective/Objective
Subjective/Objective
Vital Signs:
Vital Signs
Temp Pulse Resp BP Pulse Ox
97.9 F 58 13 96/63 97
10/06/23 04:11 10/06/23 08:06 10/06/23 08:06 10/06/23 08:06 10/06/23 08:30
Lab Results:
Laboratory Data
WBC 3.6 10^3/uL (4.8-10.8) L 10/06/23 06:13
Hgb 12.8 g/dL (13.0-18.0) L 10/06/23 06:13
Plt Count 102 10^3/uL (130-400) L 10/06/23 06:13
PT 15.3 Sec (11.4-14.6) H 10/05/23 10:19
INR 1.18 10/05/23 10:19
eGFR > 60.00 10/06/23 06:13

Documented by User: Troy Sanchez MD 10/06/23 09:34
Plan
Plan
Unresponsive; benzodiazepine overuse vs other causes
- Urine benzodiazepine screen was positive on admission on 10-05-23.
- Staff found an empty pill bottle in his pocket when he was brought in.
- He has been hypothermic, bradycardic and hypotensive since admission.
- He does not have a prescription for a benzodiazepine and only takes mirtazapine at bedtime to help him fall asleep.
- His reports that he has experienced a similar episode of unresponsiveness in 2018, when he took too much of Ativan 'to help him sleep'.
- His does have a prescription for Xanax, which he has access to.
- He was responsive while in the IMU but mostly unintelligible.
- Denies taking the Xanax or other benzodiazepines by shaking his head.
- Of note, per PDMP, he was previously using a fentanyl patch and oxycodone last filled in 11/2021.
- Urine BZD screens have poor sensitivity and specificity for BZD toxicity.
- Pending blood culture results.
Pancytopenia
- WBC 1.7, RBC 3.7, HGB 11.8, PLT 119 on admission.
- WBC count recovered on 10-06-23.
- Platelets 102 on 10-06-23.
- He has a history of intermittent pancytopenia since at least 2021.
- His current blood count has been within his usual range.
- Pancytopenia can be exacerbated in setting of infection/other stressors.
- Flu and COVID-19 tests were negative; pending blood cultures.
- Failure to thrive possibly contributory.
- Ordered iron studies, B12 and folate.
- Follow CBC.
Failure to thrive
- He developed dysphagia, likely a sequelae from treatment of the SCC.
- He has had a loss of appetite and progressive weight loss since at least 2017.
- He has lost around 20 pounds over the last 3 months; a total of 54 pounds in the past 7 months.
- He drinks 2 ensures per day, and tries to consume about 2400 fredy but likely getting much less since he has been tolerating progressively smaller portion sizes.
- He is unable to tolerate solid foods and foods with certain textures, and has a limited diet.
- He was hospitalized for significant protein calorie malnutrition in 2021 and required a PEG tube placement for dysphagia (removed in 2022).
- Dysphagia has persisted, and he has to make an active effort to swallow food according to the .
- Can consider feeding assistance with a tube vs TPN when stable.
- Would appreciate reevaluation from nutrition; probably needs increased calorie intake.
Oropharyngeal squamous cell carcinoma, in remission
- He underwent 8 rounds of chemo and 35 rounds of radiation for the squamous cell carcinoma.
- Resection at [facility].
- CT CAP from 09-29-23 did not demonstrate any evidence of metastatic disease or adenopathy.
- Continues to be in remission.
Attending addendum:
I saw and examined the patient.
The Resident's note was reviewed and I agree with the note.
Comment:
CT scan C/A/P 09/30 reveals no evidence of recurrent disease to explain 50 pounds of weight loss over the past 6 months.
Patient is in remission. Based on imaging, no evidence to suggest recurrent disease.
Mild cytopenias noted. This is chronic and could related to underlying liver disease.
No specific acute heme-onc issues. We will follow along intermittently.
HZ
--- NOTE | 2023-10-06 09:50 | PTOTSP ---
Speech Language Pathology
Pt seen for clinical bedside swallow evaluation. Known to BALANCE ENGINEER service at . VSE completed 12/03/21 with findings of mild oropharyngeal dysphagia. Trace penetration of thin liquids with silent aspiration of consecutive sips of thin liquids. Pt
participated in outpatient dysphagia tx from December to August 2022 and discharged on primarily softer solids/thin liquids.
This date, P.O. trials of puree, regular solids, and thin liquids provided. Pt taking small bites, which is typical for him. Adequate mastication, bolus formation, and A-P transit noted. No overt signs of aspiration.
Pt has lost 54 pounds in 7 months. However, pt/ deny any worsening dysphagia, and CXR on admission clear. Pt reports significantly decreased appetite. Suspect appetite is reason for weight loss, not dysphagia.
Recommend:
(1) Continue regular solids/thin liquids
(2) Aspiration precautions: sit upright, slow rate, frequent sips of water during meals
(3) Meds as tolerated
(4) RD follow up
(5) BALANCE ENGINEER to sign off. Please reconsult as indicated.
[2023-10-06 11:39] LABS: Iron 36 ug/dl (49-181)
[2023-10-06 11:50] LABS: Percent Saturation 19 % (20-50); Total Iron Binding Capacity 188 ug/dl (261-462)
--- NOTE | 2023-10-06 12:13 | W.PN.NEPH.PH ---
Today's Communication / Plan
-
cotn IVF, try wean once po intake improves
Assessment/Plan
-
IMP:
-hyponatremia
-hypotension
-FTT
-depression
-head and neck CA remission
-neutropenia
-recent nasal fracture
Plan
hyponatremia appears to be hypovolemic due to low solute intake
sodium improving with iVF , decrease rate
TSH and cortisol were ok
BP are soft, may not tolerate salt tab, can increase salt in diet
-encourage solute intake with FR 48 ounce/day
d/w pt and at bedside
-
-
Date of Service: October 06, 2023
CC / HPI / ROS
-
Chief Complaint:
hyponatremia
History of Present Illness:
sodium better at 131
BP remain soft
po intake is poor
no fever
wbc better at 3.6
Review of Systems:
difficult to swallow
no cp or sob
food options limited , going to speak with director of group sales
Labs
-
Labs:
WBC 3.6 10^3/uL (4.8-10.8) L 10/06/23 06:13
RBC 4.02 10^6/uL (4.70-6.10) L 10/06/23 06:13
Hgb 12.8 g/dL (13.0-18.0) L 10/06/23 06:13
Hct 35.6 % (39.0-52.0) L 10/06/23 06:13
Plt Count 102 10^3/uL (130-400) L 10/06/23 06:13
Sodium 131 mmol/L (135-145) L 10/06/23 06:13
Potassium 3.5 mmol/L (3.5-5.1) 10/06/23 06:13
Chloride 98 mmol/L (98-107) 10/06/23 06:13
Carbon Dioxide 29 mmol/L (22-30) 10/06/23 06:13
BUN 8 mg/dl (9-20) L 10/06/23 06:13
Creatinine 0.6 mg/dL (0.7-1.3) L 10/06/23 06:13
eGFR > 60.00 10/06/23 06:13
Glucose 112 mg/dl (70-99) H 10/06/23 06:13
Calcium 8.0 mg/dl (8.4-10.2) L 10/06/23 06:13
Albumin 2.7 g/dl (3.5-5.0) L 10/06/23 06:13
Physical Exam
-
Vital Signs:
Vital Signs
Temp Pulse Resp BP Pulse Ox
98.1 F 58 13 96/63 97
10/06/23 07:25 10/06/23 08:06 10/06/23 08:06 10/06/23 08:06 10/06/23 08:30
Cardiovascular:: Regular rate and rhythm
Respiratory:: Bilateral: CTA
Lung Excursion:: Normal
Abdomen:: Nontender and Soft
Extremity Edema:: None: Bilateral:
Vera Catheter: No
[2023-10-06 12:48] LABS: Folate > 20.0 ng/ml (2.76-20); Vitamin B12 > 1000 pg/ml (239-931)
--- NOTE | 2023-10-06 14:26 | CON.MD ---
Consultation - Medical
-
patient seen chart reviewed. patient admitted w change in mental status. indeed yesterday he was unable to be interviewed as he was sedated. the patient tells me he is here bc 'i didn't wake up the other am....i couldn't sleep so i took something
then i took a second' likely the something was remeron 15 mg which he had been prescribed a couple of weeks ago for anxiety appetite and sleep. mr cordero was rx for head and neck ca in 2020 w chemo and radiation. he has had periods where he has felt
on the road to recovery although of late has experienced anxiety and some dysphoria..he says anxiety is more prominent than depression. his appetite has decreased. his sleep is not good. he cites loss of the taste sensation since rx of his ca as
the reason for the loss of appetite. he can enjoy some activities. he and his loved to walk and travel although that is not so possible right now. he has no suicidal thoughts. there is no psychosis. on admit patient was hypothermic bradycardic
w very low bp. says he does have scrip for xanax and there was bzp in his urine so he may have taken this as well.
past psych hx patient has never been hospitalized psychiatrically. he feels his depression and anxiety are secondary to his stress over dx of head and neck ca
substance abuse denied
fh denied
medical hx head and neck ca see above hld hx prostate ca peg tube placement in the past.
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 okay childhood. has family and friends who are +
mse frail and weak appearing 68 year old man who was cooperative . no unusual behaviors noted speech and thought process nl no psychosis mood seemed depressed affect constricted no si average intell. insight judgment fair.
dx major depression unspecfied anxiety
recommendations: called as requested by patient. she reports 54 lb weight loss after the head and neck cancer treatment. mr cordero had an appt yesterday with his head and neck md yesterday. he also had workup for metastases last week which was
negative. he has been cancer free since spring. he could not swallow at that time and feeding tube inserted which was removed a year later. he has no taste or smell and he saw a sewage screen operator [place] but it was hard to find things
which pleased him as texture bothered him. he has been eating a number of calories daily but still seems to lose weight. mrs cordero said her is very discouraged by his failure to progress. he is also concerned that his is 'miserable'
having to care for him. notes he has not been showering and has not cut his hair since november and this is not typical for him. he was an avid walker and in the spring he was up to two miles daily. had retired from her job and the moved
here [place] and then he was d x. remeron was actually started in april bu the radiologist oncologist when he started losing weight in april. 15 mg it was never increased to 30. would restart it here and go up to 30 mg in a week or two. that
said i don't think patient's problem is only depression. i am not convinced that antidepressants are necessarily the whole answer here. would also suggest consideration be given to marinol, megace or even go to a marijuana dispensary for
recommendations of mj supplements. would tpn be a possibility as he has failed to gain weight? does not think this was any type of suicide attempt and nor do i. will follow
--- NOTE | 2023-10-06 17:03 | W.PN.HOSP.TC ---
Today's Communication/Plan
-
Doing much better
Appreciate psychiatry and nephrology recommendations
Discharge planning
Assessment / Plan
Assessment / Plan
Physical Exam
General: Other (Unresponsive)
HEENT: Normocephalic
Respiratory: Clear
Cardiac: S1/S2 and Bradycardia
GI: Soft, Non Tender, Non Distended, Hypoactive bowel sounds
Musculoskeletal: No Cyanosis and No Edema
Skin: Warm, Dry and Rash (Seborrheic dermatitis to scalp and chest)
Neuro: Other (Unresponsive)
Assessment/Plan
#Acute Toxic Metabolic Encephalopathy - RESOLVED - Suspected due to Benzodiazepene vs. other
#Hypothermia - RESOLVED
#Hypotension - chronic?
#Pancytopenia
-Blood cultures x 2, UA and CXR unrevealing for infection
-Received IV fluids
-Status post temo hugger
-Follow CBC, BMP
-Consult Onc
-Minimize/avoid sedative medications
-Will need to have all medications securely locked at home, likely will need VN at home
��
#Unresponsive possibly secondary to benzodiazepine use
Benzodiazepine use on urine drug screen
- UDS + for benzos
-Neurochecks every [address] head: No acute intracranial abnormality
#Failure to thrive with weight loss
# Acute on chronic depression
Hold mirtazapine 15 mg at bedtime due to unresponsiveness
-Weight loss 20 pounds in the last 3 months and 52 pounds since November 2021 was 181 LBS now 129.3 LBS
- reports is eating 2400 fredy with 2 ensures
-Consulted Psychiatry, recommendations appreciated
#Hypovolemic Hyponatremia
-Improved with IV fluids
-Consult Nephro, recommendations appreciated
-Encourage solute intake with FR 48 ounce/day
#Seborrheic dermatitis to scalp and chest secondary to not bathing
- reports patient is very depressed and refuses to shower
-Recommend Selsun Blue to hair and chest for or patient to use with soft bristle brush
-Recommend shower chair
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
#Treated with chemo 8 rounds and radiation 35 rounds-finished in 2021
#Had resection of squamous cell carcinoma oropharynx at [facility]
-Follows with Dr. Davies
� � � CT chest abdomen pelvis with IV contrast 09/29/2023
� � � � � � No evidence of metastatic disease or adenopathy in the chest abdomen or pelvis
� � � � � � Large volume feces throughout the colon and rectum suggesting constipation
�� � � � � � DDD C7-T1, L2-3 and L3-4
#Dysphagia Hx
Hx PEG tube November 2021 with removal November 2022
-Eats regular diet with 2 Ensure per day
-Consult dietary
#Recent nasal bone fracture from fall
#History of DVT LLE (no longer on Eliquis)
#Hyperlipidemia
#History of Hypomagnesemia
DVT prophylaxis
SCDs
Full code per Tiffanie at bedside
Anticipated Discharge: 24 - 48 hours
Subjective/Interval History
-
Date of Service: October 06, 2023
Patient was seen and examined. He was awake and alert today, sitting on a chair, without any new symptoms or complaints.
Objective Data
-
Labs:
Laboratory Results
10/06/23
06:13
WBC 3.6 L
Hgb 12.8 L
Hct 35.6 L
Plt Count 102 L
Sodium 131 L
Potassium 3.5
Chloride 98
Carbon Dioxide 29
BUN 8 L
Creatinine 0.6 L
Glucose 112 H
Calcium 8.0 L
Total Bilirubin 0.9
AST 51
ALT 20
Alkaline Phosphatase 35 L
Vital Signs:
Vital Signs
Temp Pulse Resp BP Pulse Ox
98.1 F 64 15 94/69 97
10/06/23 11:15 10/06/23 16:00 10/06/23 16:00 10/06/23 16:00 10/06/23 16:00
I&O
10/05/23 10/06/23 10/07/23
06:59 06:59 06:59
Intake Total 1840 / 1840 1200 / 1200
Output Total 500 / 500 450 / 450
Balance 1340 / 1340 750 / 750
--- NOTE | 2023-10-06 17:34 | CM ---
Addendum entered by Aggie Waddell RN 10/06/23 17:41:
Additionally patient stated he is active and goes on walks at home.
Original Note:
Patient with Hx recent fall with Dx Acute TME suspect due to Benzodiazepene, Unresponsive episode, FTT, depression, hyponatremia. Room air. IVF.
Met with patient who resides with his in a 2 story house.
The patient was Independent ADLs/ambulation.
He admits to a mechanical fall about a month ago- he states he tripped over rope tied between [employer].
No DME, prior VN or SNF.
PCP - Lila Hill
Pharmacy - [facility]
Offered VN and patient declined.
No CM d/c needs identified.
Plan home.
--- NOTE | 2023-10-06 18:33 | SUR.OPER ---
Pt has been much more awake and interactive, was assisted to chair by PT/OT, x1 assist and has been sitting out all day. at bedside. Plan of care discussed, questions answered. Pt is AOx3 pleasant and cooperative. BPs soft but pt asymptomatic.
Continuing to monitor.
[2023-10-06] MEDS: REMERON 15 MG PO (22:15)
[2023-10-07] VITALS (13 sets, daily range): BP systolic 80–116; BP diastolic 58–73; PULSE 71; BMI 17.8
[2023-10-07 04:48] LABS: % Basophils 0.4 % (0-2); % Eosinophils 0.7 % (0-6); % Immature Granulocytes 0.4 % (0-0.5); % Lymphocytes 14.6 % (20.5-51.1); % Monocytes 10.1 % (1.7-9.3); % Neutrophils 73.8 % (42.2-75.2); Absolute Lymphocytes 0.4 10^3/uL (1.2-3.4); Absolute Monocytes 0.3 10^3/uL (0.1-0.6); Hematocrit 35.5 % (39.0-52.0); Hemoglobin 12.6 g/dL (13.0-18.0); Mean Corp Hgb Conc. 35.5 g/dL (33.0-37.0); Mean Corpuscular Hgb 31.6 pg (27.0-31.0); Mean Platelet Volume 9.2 fL (7.4-10.4); Nucleated Red Blood Cells % 0 % (-); Platelet Count 100 10^3/uL (130-400); Red Blood Cell Count 3.99 10^6/uL (4.70-6.10); Red Cell Dist. Width 13.2 % (11.5-14.5); White Blood Cell Count 2.7 10^3/uL (4.8-10.8)
[2023-10-07] MEDS: D5/0.9% SODIUM CHLORIDE 1000 IV (05:05)
[2023-10-07 05:21] LABS: ALT (SGPT) 20 U/L (0-50); AST (SGOT) 54 U/L (17-59); Albumin 2.7 g/dl (3.5-5.0); Alkaline Phosphatase 42 U/L (38-126); Blood Urea Nitrogen 5 mg/dl (9-20); Calcium 8.1 mg/dl (8.4-10.2); Carbon Dioxide 28 mmol/L (22-30); Chloride 106 mmol/L (98-107); Estimated Creatinine Clearance 101 ml/min; Glucose 83 mg/dl (70-99); Potassium 3.3 mmol/L (3.5-5.1); Sodium 132 mmol/L (135-145); Total Bilirubin 0.7 mg/dl (0.2-1.3); Total Protein 4.8 g/dl (6.3-8.2); eGFR > 60.00
--- NOTE | 2023-10-07 05:29 | PTCARENOTE ---
Patient am k 3.3. order caller provider made aware.
[2023-10-07] MEDS: KCL 270 MEQ IV (06:03)
--- NOTE | 2023-10-07 09:56 | W.PN.ONC ---
Today's Communication / Plan
-
Thyroid adequate
B12 folic acid adequate
Illicit use of benzodiazepines with denial
No evidence of recurrent malignancy last treatment 10/2021
Posttreatment CBC baseline WBC 3.5-4.0 with chronic lymphopenia platelet count 120 K
Will send copper level
Patient may need bone marrow biopsy to assure adequate hematopoiesis
Impression
Impression
Benzodiazepine overdose? Patient with access to 's Xanax
Pancytopenia postchemotherapy and nutritional insufficiency B12 and folic acid would suggest adequate absorption there may be trace nutrient insufficiencies such as copper
Failure to thrive anorexia and taste disorder
Oropharyngeal squamous cell carcinoma, in remission
Subjective/Objective
Subjective/Objective
More alert today but continues to have some short-term memory impairment.
Vital Signs:
Vital Signs
Temp Pulse Resp BP Pulse Ox
98 F 57 14 83/58 96
10/07/23 07:42 10/07/23 06:00 10/07/23 04:00 10/07/23 06:00 10/07/23 06:00
Physical Exam
General: Awake and alert
HEENT: Normocephalic
Respiratory: Clear
Cardiac: S1/S2 and Bradycardia
GI: Soft, Non Tender, Non Distended, Hypoactive bowel sounds
Musculoskeletal: No Cyanosis and No Edema
Skin: Warm, Dry and Rash (Seborrheic dermatitis to scalp and chest)
Neuro: Nonfocal some short-term memory deficiency
Lab Results:
Laboratory Data
WBC 2.7 10^3/uL (4.8-10.8) L 10/07/23 04:31
Hgb 12.6 g/dL (13.0-18.0) L 10/07/23 04:31
Plt Count 100 10^3/uL (130-400) L 10/07/23 04:31
PT 15.3 Sec (11.4-14.6) H 10/05/23 10:19
INR 1.18 10/05/23 10:19
eGFR > 60.00 10/07/23 04:31
--- NOTE | 2023-10-07 12:02 | PTCARENOTE ---
Per attending, patient written for tele, needs private room due to low WBC (2.7) and ANC (2.0) and place pt on neutropenic precautions. UC, Pt and updated.
--- NOTE | 2023-10-07 12:10 | PN.CDI ---
CDI
- -
CDI:
Physician Documentation Request
Admit Date: 10/05/23 13:50
Dear Doctor Deyanira,
Please review the following and provide your response in the progress notes.
Clinical Indicators:
Switchboard Installer, 10/05
#CBW: 127 lb 3.307 oz BMI 17.5 underweight range 10/05; 137 lb 09/28; 173 lb 10/22.
#...Significant weight loss of 7.9% x 1 week, 13.6% x 3 months, 26.6% x 1 year.
#NFPE: significant muscle loss (temples, clavicles, quads, calves) and fat loss (orbitals, ribs) noted.
#Per ASPEN/AND guidelines pt meets for severe malnutrition in the context of chronic illness #...evidenced by suspected inadequate intakes,
#...13.6% wt loss x 3 months, 26.6% wt loss x 1 year, fat loss, and muscle loss.
PN, 10/06
#Failure to thrive with weight loss
#-Weight loss 20 pounds in the last 3 months and 52 pounds since November 2021 was 181 LBS now 129.3 LBS
To ensure the quality of the medical record, based on the above information and the recognized standards for malnutrition , please verify in the progress notes which best reflects the patient's nutritional status:
Severe Malnutrition of chronic illness
Other level of malnutrition is present (Mild, Moderate or Severe)
Failure to thrive with weight loss
Other (please specify)
Crowder Criteria (ACP Hospitalist 2017)
2 or more criteria must be present for either
non severe or severe malnutrition
Note that the criteria differs related to the
presence of an acute or chronic illness
Chronic Illness
Energy Intake Non Severe: <75% for >1 month
Severe: <75% for >1 month
Weight Loss Non Severe: 5% over 1 month
7.5% over 3 months
10% over 6 months
20% over 1 year
Severe: >5% over 1 month
>7.5% over 3 months
>10% over 6 months
>20% over 1 year
Body Fat Non Severe: Mild Loss
Severe: Severe Loss
Muscle Mass Non Severe: Mild Loss
Severe: Severe Loss
Use of terms such as suspected, likely, concern for, or probable (associated with a specific diagnosis that is being evaluated, monitored, or treated as if it exists) are acceptable and can be coded in the inpatient setting, when documented at the
time of discharge.
Thank you,
Chanda Huang RN BSN CCDS
CDI Specialist
please contact via tiger text
Please use your independent medical judgment in providing your response.
--- NOTE | 2023-10-07 12:17 | PTCARENOTE ---
Pt ordered copper level per oncology, this RN called lab to clarify-need royal blue top with no additive, lab will send to unit.
--- NOTE | 2023-10-07 12:27 | W.PN.NEPH.PH ---
Today's Communication / Plan
-
d/c IVF and monitor labs
Assessment/Plan
-
IMP:
-hyponatremia
-hypotension
-FTT
-depression
-head and neck CA remission
-neutropenia
-recent nasal fracture
Plan
hyponatremia appears to be hypovolemic due to low solute intake
sodium improving with iVF , d/c today as po intake is better
TSH and cortisol were ok
BP are soft, may not tolerate salt tab due to swallowing issues, increase salt in diet
-encourage solute intake with FR 48 ounce/day
reaplce k
d/w pt and at bedside
-
-
Date of Service: October 07, 2023
CC / HPI / ROS
-
Chief Complaint:
hyponatremia
History of Present Illness:
sodium better at 132
BP remain soft
po intake is improving
no fever
Review of Systems:
difficult to swallow
no cp or sob
food options limited ,eating well today
Labs
-
Labs:
WBC 2.7 10^3/uL (4.8-10.8) L 10/07/23 04:31
RBC 3.99 10^6/uL (4.70-6.10) L 10/07/23 04:31
Hgb 12.6 g/dL (13.0-18.0) L 10/07/23 04:31
Hct 35.5 % (39.0-52.0) L 10/07/23 04:31
Plt Count 100 10^3/uL (130-400) L 10/07/23 04:31
Sodium 132 mmol/L (135-145) L 10/07/23 04:31
Potassium 3.3 mmol/L (3.5-5.1) L 10/07/23 04:31
Chloride 106 mmol/L (98-107) 10/07/23 04:31
Carbon Dioxide 28 mmol/L (22-30) 10/07/23 04:31
BUN 5 mg/dl (9-20) L 10/07/23 04:31
Creatinine 0.4 mg/dL (0.7-1.3) L 10/07/23 04:31
eGFR > 60.00 10/07/23 04:31
Glucose 83 mg/dl (70-99) 10/07/23 04:31
Calcium 8.1 mg/dl (8.4-10.2) L 10/07/23 04:31
Albumin 2.7 g/dl (3.5-5.0) L 10/07/23 04:31
Physical Exam
-
Vital Signs:
Vital Signs
Temp Pulse Resp BP Pulse Ox
97.9 F 74 12 99/71 96
10/07/23 11:00 10/07/23 11:16 10/07/23 11:16 10/07/23 11:16 10/07/23 12:08
Cardiovascular:: Regular rate and rhythm
Respiratory:: Bilateral: CTA
Lung Excursion:: Normal
Abdomen:: Nontender and Soft
Extremity Edema:: None: Bilateral:
Vera Catheter: No
--- NOTE | 2023-10-07 13:28 | W.PN.HOSP.TC ---
Today's Communication/Plan
-
Case management efforts to get a home, male visiting nurse arranged prior to patient's discharge, as per patient's request
Transfer to telemetry, private room with neutropenic precautions
Assessment / Plan
Assessment / Plan
Physical Exam
General: Not in acute distress
HEENT: Normocephalic
Respiratory: Clear
Cardiac: S1/S2 and RRR
GI: Soft, Non Tender, Non Distended, Hypoactive bowel sounds
Musculoskeletal: No Cyanosis and No Edema
Skin: Warm, Dry and Rash (Seborrheic dermatitis to scalp and chest)
Neuro: Alert. Awake. Oriented x3.
Assessment/Plan
#Acute Toxic Metabolic Encephalopathy - RESOLVED - Suspected due to Benzodiazepene vs. other
#Hypothermia - RESOLVED
#Hypotension - chronic?
#Pancytopenia
-Blood cultures x 2, UA and CXR unrevealing for infection
-Received IV fluids
-Status post temo hugger
-Follow CBC, BMP
-Consult Oncology, recommendations appreciated
-Minimize/avoid sedative medications
-Will need to have all medications securely locked at home, likely will need VN at home
��
#Unresponsive - RESOLVED - possibly secondary to benzodiazepine use
Benzodiazepine use on urine drug screen
- UDS + for benzos
-Neurochecks every [address] head: No acute intracranial abnormality
#Hypokalemia
-Replaced potassium
-Check magnesium
-Monitor BMP
#Failure to thrive with weight loss
# Acute on chronic depression
Hold mirtazapine 15 mg at bedtime due to unresponsiveness
-Weight loss 20 pounds in the last 3 months and 52 pounds since November 2021 was 181 LBS now 129.3 LBS
- reports is eating 2400 fredy with 2 ensures
-Consulted Psychiatry, recommendations appreciated
#Hypovolemic Hyponatremia
-Improved with IV fluids
-Consult Nephro, recommendations appreciated
-Encourage solute intake with FR 48 ounce/day
#Seborrheic dermatitis to scalp and chest secondary to not bathing
- reports patient is very depressed and refuses to shower
-Recommend Selsun Blue to hair and chest for or patient to use with soft bristle brush
-Recommend shower chair
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
#Treated with chemo 8 rounds and radiation 35 rounds-finished in 2021
#Had resection of squamous cell carcinoma oropharynx at [facility]
-Follows with Dr. Davies
� � � CT chest abdomen pelvis with IV contrast 09/29/2023
� � � � � � No evidence of metastatic disease or adenopathy in the chest abdomen or pelvis
� � � � � � Large volume feces throughout the colon and rectum suggesting constipation
�� � � � � � DDD C7-T1, L2-3 and L3-4
#Dysphagia Hx
Hx PEG tube November 2021 with removal November 2022
-Eats regular diet with 2 Ensure per day
-Consulted dietary, recommendations appreciated
#Recent nasal bone fracture from fall
#Severe malnutrition in the context of chronic illness
-Encourage small, frequent meals, and encourage intakes >50% at each meal
#History of DVT LLE (no longer on Eliquis)
#Hyperlipidemia
#History of Hypomagnesemia
DVT prophylaxis
SCDs
Full code per Tiffanie at bedside
Discussed case with patient's everyday since admission, as of October 07, 2023.
Anticipated Discharge: 24 - 48 hours
Subjective/Interval History
-
Date of Service: October 07, 2023
Patient was seen and examined. His was present in the room. Patient denied any new symptoms or complaints.
Objective Data
-
Labs:
Laboratory Results
10/07/23
04:31
WBC 2.7 L
Hgb 12.6 L
Hct 35.5 L
Plt Count 100 L
Sodium 132 L
Potassium 3.3 L
Chloride 106
Carbon Dioxide 28
BUN 5 L
Creatinine 0.4 L
Glucose 83
Calcium 8.1 L
Total Bilirubin 0.7
AST 54
ALT 20
Alkaline Phosphatase 42
Vital Signs:
Vital Signs
Temp Pulse Resp BP Pulse Ox
97.9 F 74 12 99/71 96
10/07/23 11:00 10/07/23 11:16 10/07/23 11:16 10/07/23 11:16 10/07/23 12:08
I&O
10/06/23 10/07/23 10/08/23
06:59 06:59 06:59
Intake Total 1840 / 1840 2640 / 2640
Output Total 500 / 500 1450 / 1450
Balance 1340 / 1340 1190 / 1190
--- NOTE | 2023-10-07 14:56 | CM ---
Patient with Hx recent fall with Dx Acute TME, Early stage head/neck cancer, FTT, depression, hyponatremia. Room air. IVF. PT & OT recommend HH. [facility].
Met with patient and Ivon; appeared stressed and overwhelmed and was tearful, stating she has not had adequate support at home as patient's sole caregiver and feels she doesn't know how she can continue like this. There are no children
or other family to assist.
distressed re; patient's ongoing difficulty tolerating his diet and feels unsupported that not enough dietary recommendations have occurred with foods that the patient can tolerate ---> message sent to stamp redemption clerk Keysha, nurse, Darrin Mcmillan &
Samson.
Ivon says that the patient did not want to do an oncology support group however she started personal counseling and now the patient goes with her, which has been helpful.
Suggested Palliative Care for extra support & care coordination- agrees and CM made referral.
Offered VN for SN/PT/OT/FOOD SERVICE CASHIER and possibly SW; agrees and states she would like male nurse. CM informed her that [facility] does not have male nurse (checked with BEATRIZ Perez) however [facility] does (checked with [facility] Boswell) and she agrees to [facility].
Suggested possibly hiring a caregiver for 4 hrs/day to provide respite for and personal care for the patient- Caregiver list provided and she will call their LTC insurance which may cover this, and then a caregiver agency.
relayed she was stressed about the patient's prior hospital discharge, as [facility] was not easy to work with and did not provide good service in a timely way. Advised her that if she runs into any problems with agencies not showing
up again she should contact CM the day after discharge so CM can help resolve.
Plan home with [facility], Palliative Care and Caregiver list.
--- NOTE | 2023-10-07 15:19 | W.PN.UPDATE ---
Update Note
Progress Note Update
patient seen chart reviewed. patient is much better today. he was smiling and seemed heartened by recent news. was present making arrangements for help in the home w nursing dietary etc. his appetite has picked up to a degree. he slept last
night w remeron. he is hoping for dc tomorrow. he does not feel at this point he needs psychiatry particularly and i tend to agree. the remeron can be monitored by his pcp. i would give consideration to some of the recommendations in my initial eval
yesterday psych will sign off
[2023-10-07] MEDS: D5/0.9% SODIUM CHLORIDE IV (15:24)
--- NOTE | 2023-10-07 17:22 | PTCARENOTE ---
Report given to HAYDEN Sanders on , will send pt up in wheelchair to [phone]. Pt and in agreement.
--- NOTE | 2023-10-07 18:05 | PTCARENOTE ---
Report received from Raven Johnson from IMU over phone. pt arrived via wheel chair, walked over to hospital bed independently. AAOx3. spouse with pt. pt with no concerns at the moment, awaiting dinner tray. 22g PIV noted in left FA, sub Q port present
on right chest, not accessed. pt provided water, urina and call genao. Rundown of the unit provided. no pressing issues at the moment. care plan continues to be followed.
[2023-10-07 21:02] LABS: Magnesium 1.9 mg/dl (1.6-2.3)
[2023-10-07] MEDS: HEPARIN 5000 UNITS SC (21:20)
[2023-10-07] MEDS: REMERON PO (21:21)
[2023-10-07] MEDS: REMERON 15 MG PO (23:17)
[2023-10-08 03:51] VITALS: BP 102/66
[2023-10-08 06:00] VITALS: BMI 17.8
[2023-10-08 06:36] LABS: % Basophils 0.4 % (0-2); % Eosinophils 1.6 % (0-6); % Lymphocytes 22.5 % (20.5-51.1); % Monocytes 11.6 % (1.7-9.3); % Neutrophils 63.9 % (42.2-75.2); Absolute Lymphocytes 0.6 10^3/uL (1.2-3.4); Absolute Monocytes 0.3 10^3/uL (0.1-0.6); Absolute Neutrophils 1.6 10^3/uL (1.4-6.5); Hematocrit 32.5 % (39.0-52.0); Hemoglobin 11.5 g/dL (13.0-18.0); Mean Corp Hgb Conc. 35.4 g/dL (33.0-37.0); Mean Corpuscular Hgb 31.6 pg (27.0-31.0); Mean Corpuscular Volume 89.3 fL (80.0-94.0); Nucleated Red Blood Cells % 0 % (-); Platelet Count 90 10^3/uL (130-400); Red Blood Cell Count 3.64 10^6/uL (4.70-6.10); Red Cell Dist. Width 13.2 % (11.5-14.5); White Blood Cell Count 2.5 10^3/uL (4.8-10.8)
[2023-10-08 07:00] VITALS: BP 97/61
[2023-10-08 07:14] LABS: ALT (SGPT) 22 U/L (0-50); AST (SGOT) 55 U/L (17-59); Albumin 2.6 g/dl (3.5-5.0); Alkaline Phosphatase 50 U/L (38-126); Blood Urea Nitrogen 9 mg/dl (9-20); Calcium 8.3 mg/dl (8.4-10.2); Carbon Dioxide 26 mmol/L (22-30); Chloride 102 mmol/L (98-107); Estimated Creatinine Clearance 100 ml/min; Glucose 82 mg/dl (70-99); Potassium 3.4 mmol/L (3.5-5.1); Sodium 134 mmol/L (135-145); Total Bilirubin 0.5 mg/dl (0.2-1.3); Total Protein 4.7 g/dl (6.3-8.2); eGFR > 60.00
[2023-10-08] MEDS: KCL 40 MEQ PO (09:01)
[2023-10-08] MEDS: HEPARIN 5000 UNITS SC (09:01)
--- NOTE | 2023-10-08 11:38 | W.PN.HOSP.TC ---
Today's Communication/Plan
-
Discharge today
Assessment / Plan
Assessment / Plan
Physical Exam
General: Not in acute distress
HEENT: Normocephalic
Respiratory: Clear
Cardiac: S1/S2 and RRR
GI: Soft, Non Tender, Non Distended, Positive bowel sounds
Musculoskeletal: No Cyanosis and No Edema
Skin: Warm, Dry and Rash (Seborrheic dermatitis to scalp and chest)
Neuro: Alert. Awake. Oriented x3.
Assessment/Plan
#Acute Toxic Metabolic Encephalopathy - RESOLVED - Suspected due to Benzodiazepene vs. other
#Hypothermia - RESOLVED
#Hypotension - chronic?
#Pancytopenia
-Blood cultures x 2, UA and CXR unrevealing for infection
-Received IV fluids
-Status post temo hugger
-Follow CBC, BMP
-Consult Oncology, recommendations appreciated
-Follow-up copper level
-Follow-up with oncology outpatient
-Minimize/avoid sedative medications
-Will need to have all medications securely locked at home, likely will need VN at home
��
#Unresponsive - RESOLVED - possibly secondary to benzodiazepine use
Benzodiazepine use on urine drug screen
- UDS + for benzos
-Neurochecks every [address] head: No acute intracranial abnormality
#Hypokalemia
-Replaced potassium
-Potassium supplementation on discharge with recheck of BMP within 1 week
-Check magnesium - okay at 1.9
-Monitor BMP
#Failure to thrive with weight loss
#Acute on chronic depression
-Weight loss 20 pounds in the last 3 months and 52 pounds since November 2021 was 181 LBS now 129.3 LBS
-Patient's reported patient had been eating 2400 fredy with 2 ensures
-Consulted Psychiatry, recommendations appreciated
#Hypovolemic Hyponatremia
-Improved with IV fluids
-Consult Nephro, recommendations appreciated
-Encourage solute intake with FR 48 ounce/day - with recheck of BMP within 1 week
#Seborrheic dermatitis to scalp and chest secondary to not bathing
-Patient's reported patient is very depressed and refuses to shower
-Recommend Selsun Blue to hair and chest for or patient to use with soft bristle brush
-Recommend shower chair
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
#Treated with chemo 8 rounds and radiation 35 rounds-finished in 2021
#Had resection of squamous cell carcinoma oropharynx at [facility]
-Follows with Dr. Davies
� � � CT chest abdomen pelvis with IV contrast 09/29/2023
� � � � � � No evidence of metastatic disease or adenopathy in the chest abdomen or pelvis
� � � � � � Large volume feces throughout the colon and rectum suggesting constipation
�� � � � � � DDD C7-T1, L2-3 and L3-4
#Dysphagia History
Hx PEG tube November 2021 with removal November 2022
-Eats regular diet with 2 Ensure per day
-Consulted dietary, recommendations appreciated
#Recent nasal bone fracture from fall
#Severe malnutrition in the context of chronic illness
-Encourage small, frequent meals, and encourage intakes >50% at each meal
#History of DVT LLE (no longer on Eliquis)
#Hyperlipidemia
#History of Hypomagnesemia
DVT prophylaxis
SCDs
Full code
More than 30 minutes spent in discharge including
Final examination of the patient
Summarizing hospital stay
Instructions for continuing care to all relevant caregivers
Preparation of discharge records, prescriptions, and referral forms
Total time spent (in minutes): 38
Anticipated Discharge: Today
Subjective/Interval History
-
Date of Service: October 08, 2023
Patient was seen and examined. He reported no new symptoms or complaints.
Objective Data
-
Labs:
Laboratory Results
10/08/23 10/08/23
05:56 05:57
WBC 2.5 L
Hgb 11.5 L
Hct 32.5 L
Plt Count 90 L
Sodium 134 L
Potassium 3.4 L
Chloride 102
Carbon Dioxide 26
BUN 9
Creatinine 0.4 L
Glucose 82
Calcium 8.3 L
Total Bilirubin 0.5
AST 55
ALT 22
Alkaline Phosphatase 50
Vital Signs:
Vital Signs
Temp Pulse Resp BP Pulse Ox
97.8 F 83 16 97/61 97
10/08/23 07:00 10/08/23 07:00 10/08/23 07:00 10/08/23 07:00 10/08/23 11:24
I&O
10/07/23 10/08/23 10/09/23
06:59 06:59 06:59
Intake Total 2640 / 2640 1716 / 1716
Output Total 1450 / 1450 650 / 650
Balance 1190 / 1190 1066 / 1066
--- NOTE | 2023-10-08 11:46 | W.PN.NEPH.PH ---
Today's Communication / Plan
-
Ks/o
Assessment/Plan
-
IMP:
-hyponatremia
-hypotension
-FTT
-depression
-head and neck CA remission
-neutropenia
-recent nasal fracture
Plan
-electrolytes should improve with improved po intake
-follow BMP
-will sign off
-
-
Date of Service: October 08, 2023
CC / HPI / ROS
-
Chief Complaint:
hyponatremia
History of Present Illness:
sodium better at 134
BP remain soft
po intake is improving
no fever
K low 3.4
Review of Systems:
no cp or sob
Labs
-
Labs:
WBC 2.5 10^3/uL (4.8-10.8) L 10/08/23 05:56
RBC 3.64 10^6/uL (4.70-6.10) L 10/08/23 05:56
Hgb 11.5 g/dL (13.0-18.0) L 10/08/23 05:56
Hct 32.5 % (39.0-52.0) L 10/08/23 05:56
Plt Count 90 10^3/uL (130-400) L 10/08/23 05:56
Sodium 134 mmol/L (135-145) L 10/08/23 05:57
Potassium 3.4 mmol/L (3.5-5.1) L 10/08/23 05:57
Chloride 102 mmol/L (98-107) 10/08/23 05:57
Carbon Dioxide 26 mmol/L (22-30) 10/08/23 05:57
BUN 9 mg/dl (9-20) 10/08/23 05:57
Creatinine 0.4 mg/dL (0.7-1.3) L 10/08/23 05:57
eGFR > 60.00 10/08/23 05:57
Glucose 82 mg/dl (70-99) 10/08/23 05:57
Calcium 8.3 mg/dl (8.4-10.2) L 10/08/23 05:57
Albumin 2.6 g/dl (3.5-5.0) L 10/08/23 05:57
Physical Exam
-
Vital Signs:
Vital Signs
Temp Pulse Resp BP Pulse Ox
97.8 F 83 16 97/61 97
10/08/23 07:00 10/08/23 07:00 10/08/23 07:00 10/08/23 07:00 10/08/23 11:24
Cardiovascular:: Regular rate and rhythm
Respiratory:: Bilateral: Coarse
Lung Excursion:: Normal
Abdomen:: Nontender and Soft
Bowel Sounds:: Normal
Extremity Edema:: None: Bilateral:
[2023-10-08 14:00] VITALS: BP 101/70
--- NOTE | 2023-10-08 14:15 | W.DS.TRANS ---
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
-
Discharge Instructions:
Discharge Diagnosis/Procedures #Acute Toxic Metabolic Encephalopathy - RESOLVED
- Suspected due to Benzodiazepene vs. other
#Hypothermia - RESOLVED
#Hypotension - chronic?
#Pancytopenia
#Unresponsive - RESOLVED - possibly secondary to
benzodiazepine use
#Hypokalemia
#Failure to thrive with weight loss
#Acute on chronic depression
#Hypovolemic Hyponatremia
#Seborrheic dermatitis to scalp and chest
secondary to not bathing
#Early stage head/neck cancer, treated with
cisplatin/RT in early 2021 (JOSE since)
#Primary squamous cell carcinoma oropharynx
November 2021
#Treated with chemo 8 rounds and radiation 35
rounds-finished in 2021
#Had resection of squamous cell carcinoma
oropharynx at [facility]
#Dysphagia History
#Recent nasal bone fracture from fall
#Severe malnutrition in the context of chronic
illness
#History of Deep Vein Thrombosis of Left Lower
Extremity (no longer on Eliquis)
#Hyperlipidemia
#History of Hypomagnesemia
Diet Restrict fluids to 48 oz,As tolerated,Regular
Activity As tolerated
Driving Restrictions No driving
Blood Work Have your complete blood count, magnesium and
basic metabolic panel rechecked with your
primary care provider's office by Wednesday,
October 11, 2023
Other Services VN
Specialty Instructions Weigh Daily
Instructions:
Stand-Alone Forms:
Changes to Home Medications: Yes
Discharge Medications:
DC Medications w/original date entered in [facility]
Isotonix Antioxidant Powder 1 dose PO DAILY Supplement 10/05/23
Isotonix B-Complex Powder 1 dose PO DAILY Supplement 10/05/23
Isotonix Calcium Plus Powder 1 dose PO DAILY Supplement 10/05/23
Isotonix Multivitamin Powder 1 dose PO DAILY Supplement 10/05/23
Isotonix Vitamin D3 Powder 1 dose PO DAILY Supplement 10/05/23
mirtazapine 15 mg tablet 15 mg PO HS Mental Health 10/05/23
polyethylene glycol 3350 17 gram oral powder packet (Miralax) 17 g PO DAILY PRN constipation 10/05/23
potassium chloride 10 mEq tablet,extended release 10 meq PO BID #14 tabs 10/08/23
Home Medication Changes
Potassium chloride is a new medication
Pending Results: Yes
Additional Pending Results:
Follow-up copper level
Final results of blood cultures from the hospitalization
Total time spent discharging patient (in min): 38
--- NOTE | 2023-10-08 15:51 | CM ---
patint is stable for discharge home today.met with and discussed home care with mono and palliative care with . darrell be hiring resolution rep through private agency.patient signed medicare letter.
--- NOTE | 2023-10-08 16:03 | PTCARENOTE ---
Went over DC instructions with pt and his . All questions answered. Pt taken by volunteer transport to [facility].
--- NOTE | 2023-10-11 09:18 | W.DCSUMMARY ---
Discharge Summary
Discharge Data
Date of Admission: 10/05/23
Date of Discharge: 10/08/23
Total time spent discharging patient (in min): 38
-
Pending Results: Yes
Additional Pending Results:
Follow-up copper level
Final results of blood cultures from the hospitalization
Hospital Course
68-year-old male with past medical history of early stage head/neck cancer, treated with cisplatin/RT in early 2021 (JOSE since), previous PEG placement (PEG tube was reversed, now able to take PO), nasal bone fracture September 28, 2023,�history of
DVT left lower extremity (no longer on Eliquis), depression, hyperlipidemia, hypomagnesemia, anemia, leukopenia and major depression presented after being found unresponsive by his family. A stroke alert was called in the emergency room, but when
patient was in the CT scan department he apparently woke up/moved for a little. Patient was also found to have bradycardia and low blood pressure after admission, which patient's family said is chronic. He was given atropine and Narcan en route to
the hospital but remained mainly unresponsive. He was also noted to be hypothermic 95.8 F. Patient's reported that patient was drinking 2 ensures per day and eating a total of 2400 fredy although is continuing to lose weight with an additional 20
pounds lost over the prior 3 months and a total of 54 pounds lost in the prior 7 months and he has a lack of interest in bathing showering and any socialization. Patient is not on any benzodiazepines, but his has a prescription for Xanax he
knows where it is located and possibly could have taken it. Patient was also found to have an empty pill bottle in his pocket when he came in.
Patient was hypothermic and bradycardic and started on a Loni Hugger. Patient's urine drug toxicology test came back positive for benzodiazepines. There were no over signs or findings of an acute infection. It was suspected that patient's clinical
presentation was consistent with benzodiazepine overdose. Hematology was consulted due to pancytopenia, they mentioned that patient's thyroid, Vitamin B12 and folic acid levels were adequate, they recommended checking a copper level and mentioned
that patient may need a bone marrow biopsy to assure adequate hematopoiesis.
Nephrology was consulted for hyponatremia, and it was determined that patient's low sodium was hypovolemic due to low solute intake. Cortisol and thyroid stimulating hormone levels were okay.
Psychiatry was consulted and recommended restarting patient's Remeron, and to consider be marinol, megace or perhaps a marijuana dispensary for recommendations of marijuana supplements.
Patient's mental status improved dramatically, and his labwork and vital signs also improved. He was stable for discharge.
Discharge Plan
-
Patient Disposition: Home with Home Care
Discharge Diagnosis/Procedures: #Acute Toxic Metabolic Encephalopathy - RESOLVED - Suspected due to Benzodiazepene vs. other
#Hypothermia - RESOLVED
#Hypotension - chronic?
#Pancytopenia
#Unresponsive - RESOLVED - possibly secondary to benzodiazepine use
#Hypokalemia
#Failure to thrive with weight loss
#Acute on chronic depression
#Hypovolemic Hyponatremia
#Seborrheic dermatitis to scalp and chest secondary to not bathing
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
#Treated with chemo 8 rounds and radiation 35 rounds-finished in 2021
#Had resection of squamous cell carcinoma oropharynx at [facility]
#Dysphagia History
#Recent nasal bone fracture from fall
#Severe malnutrition in the context of chronic illness
#History of Deep Vein Thrombosis of Left Lower Extremity (no longer on Eliquis)
#Hyperlipidemia
#History of Hypomagnesemia
Condition: Fair
Diet: As tolerated, Regular and Restrict fluids to 48 oz
Activity: As tolerated
Driving Restrictions: No driving
Blood Work: Have your complete blood count, magnesium and basic metabolic panel rechecked with your primary care provider's office by Wednesday, October 11, 2023
Other Services: VN
Specialty Instructions: Weigh Daily- Call MD for wt gain/loss 3 lbs overnight/5 lbs in 1 week
Referrals:
UNKNOWN - PT NOT,INTERVIEWE [Family Provider] -
Prescriptions:
New
potassium chloride 10 mEq tablet extended release
10 meq PO BID Qty: 14 0RF
Continued
polyethylene glycol 3350 [Miralax] 17 gram Powder In Packet
17 g PO DAILY PRN (Reason: constipation)
mirtazapine 15 mg Tablet
15 mg PO HS
Isotonix Antioxidant Powder
1 dose PO DAILY
Isotonix B-Complex Powder
1 dose PO DAILY
Isotonix Calcium Plus Powder
1 dose PO DAILY
Isotonix Multivitamin Powder
1 dose PO DAILY
Isotonix Vitamin D3 Powder
1 dose PO DAILY
Discharge Orders:
Discharge Patient (As Directed); Ordered 10/08/23
Ordered By: Ahsan Mcmillan
Discharge Date and Time
Discharge Date/Time: 10/08/23 16:45
== END 2023-10-08 16:45 | disposition home health service (06) | DRG 91 ==
LOC: 3 WEST ACU 13:50
PROVIDERS: Clinical Nurse Specialist Family Health; Internal Medicine Hematology & Oncology; Registered Nurse Critical Care Medicine; Student in an Organized Health Care Education/Training Program; ADMITTING PHYSICIAN Hospitalist; CONSULT PHYSICIAN Internal Medicine Hematology & Oncology; CONSULT PHYSICIAN Specialist; EMERGENCY PHYSICIAN Emergency Medicine; OTHER PHYSICIAN Psychiatry & Neurology Neurology; OTHER PHYSICIAN Psychiatry & Neurology Psychiatry
DX: G92.8 Other toxic encephalopathy (principal); E43 Unspecified severe protein-calorie malnutrition; D61.818 Other pancytopenia; E87.1 Hypo-osmolality and hyponatremia; Z68.1 Body mass index [BMI] 19.9 or less, adult; I95.9 Hypotension, unspecified; R62.7 Adult failure to thrive; E78.5 Hyperlipidemia, unspecified; L21.9 Seborrheic dermatitis, unspecified; S02.2XXA Fracture of nasal bones, initial encounter for closed fracture; C10.9 Malignant neoplasm of oropharynx, unspecified; F32.9 Major depressive disorder, single episode, unspecified; E86.1 Hypovolemia; E87.6 Hypokalemia; Z11.52 Encounter for screening for COVID-19; T42 Poisoning by, adverse effect of and underdosing of antiepileptic, sedative- hypnotic and antiparkinsonism drugs
CPT/HCPCS: 70450; 71045; 80053; 80306; 80307; 81003; 82077; 82525; 82533; 82607; 82728; 82746; 82962; 83540; 83550; 83605; 83735; 83930; 83935; 84300; 84439; 84443; 85025; 85610; 87040; 87502; 87811; 92610; 93005; 96360; 97116; 97163; 97166; 99291

== ENCOUNTER → 2023-10-22 15:01 | Outpatient (REF) | payer MEDICARE, SELFPAY ==
[2023-10-22 15:49] LABS: % Basophils 0.2 % (0-2); % Immature Granulocytes 1.4 % (0-0.5); % Lymphocytes 17.5 % (20.5-51.1); % Monocytes 10.4 % (1.7-9.3); % Neutrophils 70.5 % (42.2-75.2); Absolute Immature Granulocytes 0.1 10^3/uL (0-0.05); Absolute Lymphocytes 0.7 10^3/uL (1.2-3.4); Absolute Monocytes 0.4 10^3/uL (0.1-0.6); Hematocrit 35.3 % (39.0-52.0); Hemoglobin 12.6 g/dL (13.0-18.0); Mean Corp Hgb Conc. 35.7 g/dL (33.0-37.0); Mean Corpuscular Hgb 31.6 pg (27.0-31.0); Mean Corpuscular Volume 88.5 fL (80.0-94.0); Nucleated Red Blood Cells % 0 % (-); Platelet Count 222 10^3/uL (130-400); Red Blood Cell Count 3.99 10^6/uL (4.70-6.10); Red Cell Dist. Width 13.7 % (11.5-14.5); White Blood Cell Count 4.2 10^3/uL (4.8-10.8)
[2023-10-22 16:11] LABS: ALT (SGPT) 28 U/L (0-50); AST (SGOT) 40 U/L (17-59); Albumin 3.6 g/dl (3.5-5.0); Alkaline Phosphatase 89 U/L (38-126); Blood Urea Nitrogen 16 mg/dl (9-20); Calcium 9.1 mg/dl (8.4-10.2); Carbon Dioxide 27 mmol/L (22-30); Chloride 99 mmol/L (98-107); Glucose 109 mg/dl (70-99); Potassium 4.5 mmol/L (3.5-5.1); Sodium 128 mmol/L (135-145); Total Bilirubin 0.6 mg/dl (0.2-1.3); Total Protein 6.2 g/dl (6.3-8.2); eGFR > 60.00
== END ==
LOC: REG 15:01
PROVIDERS: ATTENDING PHYSICIAN Internal Medicine Hematology & Oncology; FAMILY PHYSICIAN Internal Medicine
DX: C14.8 Malignant neoplasm of overlapping sites of lip, oral cavity and pharynx (principal); R53.82 Chronic fatigue, unspecified; D50.9 Iron deficiency anemia, unspecified; D51.9 Vitamin B12 deficiency anemia, unspecified
CPT/HCPCS: 36415; 80053; 85025

== ENCOUNTER → 2023-11-26 10:36 | Outpatient (REF) | payer MEDICARE, SELFPAY ==
[2023-11-26 11:15] LABS: % Basophils 0.4 % (0-2); % Eosinophils 0.4 % (0-6); % Immature Granulocytes 1.6 % (0-0.5); % Lymphocytes 23.6 % (20.5-51.1); % Monocytes 8.6 % (1.7-9.3); % Neutrophils 65.4 % (42.2-75.2); Absolute Immature Granulocytes 0.1 10^3/uL (0-0.05); Absolute Lymphocytes 1.2 10^3/uL (1.2-3.4); Absolute Monocytes 0.4 10^3/uL (0.1-0.6); Absolute Neutrophils 3.4 10^3/uL (1.4-6.5); Hematocrit 39.5 % (39.0-52.0); Hemoglobin 13.4 g/dL (13.0-18.0); Mean Corp Hgb Conc. 33.9 g/dL (33.0-37.0); Mean Corpuscular Hgb 32.1 pg (27.0-31.0); Mean Corpuscular Volume 94.5 fL (80.0-94.0); Mean Platelet Volume 9.2 fL (7.4-10.4); Nucleated Red Blood Cells % 0 % (-); Platelet Count 149 10^3/uL (130-400); Red Blood Cell Count 4.18 10^6/uL (4.70-6.10); Red Cell Dist. Width 16.2 % (11.5-14.5); White Blood Cell Count 5.1 10^3/uL (4.8-10.8)
[2023-11-26 11:49] LABS: ALT (SGPT) 15 U/L (0-50); AST (SGOT) 28 U/L (17-59); Albumin 4.1 g/dl (3.5-5.0); Alkaline Phosphatase 53 U/L (38-126); Blood Urea Nitrogen 20 mg/dl (9-20); Calcium 9.3 mg/dl (8.4-10.2); Carbon Dioxide 28 mmol/L (22-30); Chloride 104 mmol/L (98-107); Glucose 89 mg/dl (70-99); Potassium 4.4 mmol/L (3.5-5.1); Sodium 136 mmol/L (135-145); Total Cholesterol 303 mg/dl (50-199); Total Protein 6.9 g/dl (6.3-8.2); Triglyceride 103 mg/dl (10-149); Very Low Density Lipoprotein 20 mg/dl (0-30); eGFR > 60.00
[2023-11-26 12:01] LABS: HDL Cholesterol 117 mg/dl; LDL Cholesterol, Calculated 166 mg/dl
[2023-11-27 19:22] LABS: PSA Total 0.3 ng/mL (0.0-4.0)
== END ==
LOC: REG 10:36
PROVIDERS: ATTENDING PHYSICIAN Internal Medicine Hematology & Oncology; FAMILY PHYSICIAN Internal Medicine
DX: C14.8 Malignant neoplasm of overlapping sites of lip, oral cavity and pharynx (principal); R53.82 Chronic fatigue, unspecified; D50.9 Iron deficiency anemia, unspecified; D51.9 Vitamin B12 deficiency anemia, unspecified; R53.83 Other fatigue; E78.5 Hyperlipidemia, unspecified; Z12.5 Encounter for screening for malignant neoplasm of prostate
CPT/HCPCS: 36415; 80053; 80061; 84153; 84154; 84443; 85025

== ENCOUNTER → 2024-01-25 13:32 | Outpatient (REF) | payer MEDICARE, SELFPAY | LOC: REG 13:32 | PROVIDERS: ATTENDING PHYSICIAN Otolaryngology; FAMILY PHYSICIAN Internal Medicine | DX: C01 Malignant neoplasm of base of tongue (principal) | CPT/HCPCS: 36415; 82565 ==

== ENCOUNTER → 2024-01-27 14:24 | Outpatient (REF) | payer MEDICARE, SELFPAY | LOC: RAD 14:24 | PROVIDERS: ATTENDING PHYSICIAN Otolaryngology; FAMILY PHYSICIAN Internal Medicine | DX: C01 Malignant neoplasm of base of tongue (principal) | CPT/HCPCS: 70491; Q9967 ==

== ENCOUNTER → 2024-02-21 14:08 | Outpatient (REF) | payer MEDICARE, SELFPAY ==
[2024-02-21 14:56] LABS: % Basophils 0.2 % (0-2); % Eosinophils 0.4 % (0-6); % Immature Granulocytes 0.6 % (0-0.5); % Lymphocytes 22.4 % (20.5-51.1); % Neutrophils 67.4 % (42.2-75.2); Absolute Lymphocytes 1.1 10^3/uL (1.2-3.4); Absolute Monocytes 0.4 10^3/uL (0.1-0.6); Absolute Neutrophils 3.2 10^3/uL (1.4-6.5); Hematocrit 36.1 % (39.0-52.0); Hemoglobin 12.3 g/dL (13.0-18.0); Mean Corp Hgb Conc. 34.1 g/dL (33.0-37.0); Mean Corpuscular Hgb 30.8 pg (27.0-31.0); Mean Corpuscular Volume 90.3 fL (80.0-94.0); Mean Platelet Volume 9.5 fL (7.4-10.4); Nucleated Red Blood Cells % 0 % (-); Platelet Count 154 10^3/uL (130-400); Red Cell Dist. Width 13.3 % (11.5-14.5); White Blood Cell Count 4.7 10^3/uL (4.8-10.8)
[2024-02-21 15:31] LABS: ALT (SGPT) 17 U/L (0-50); AST (SGOT) 31 U/L (17-59); Albumin 4.1 g/dl (3.5-5.0); Alkaline Phosphatase 65 U/L (38-126); Blood Urea Nitrogen 22 mg/dl (9-20); Calcium 9.8 mg/dl (8.4-10.2); Carbon Dioxide 26 mmol/L (22-30); Chloride 100 mmol/L (98-107); Glucose 110 mg/dl (70-99); Potassium 4.5 mmol/L (3.5-5.1); Sodium 135 mmol/L (135-145); Total Bilirubin 0.6 mg/dl (0.2-1.3); Total Protein 6.9 g/dl (6.3-8.2); eGFR > 60.00
== END ==
LOC: REG 14:08
PROVIDERS: ATTENDING PHYSICIAN Internal Medicine Hematology & Oncology; FAMILY PHYSICIAN Internal Medicine
DX: C14.8 Malignant neoplasm of overlapping sites of lip, oral cavity and pharynx (principal); R53.82 Chronic fatigue, unspecified; D50.9 Iron deficiency anemia, unspecified; D51.9 Vitamin B12 deficiency anemia, unspecified
CPT/HCPCS: 36415; 80053; 85025

== ENCOUNTER → 2024-02-22 12:46 | Outpatient (REF) | payer MEDICARE, SELFPAY | LOC: RAD 12:46 | PROVIDERS: ATTENDING PHYSICIAN Internal Medicine Hematology & Oncology | DX: C14.8 Malignant neoplasm of overlapping sites of lip, oral cavity and pharynx (principal); D50.9 Iron deficiency anemia, unspecified; D51.9 Vitamin B12 deficiency anemia, unspecified | CPT/HCPCS: 71260; 74177; Q9967 ==

== ENCOUNTER → 2024-03-13 10:48 | Outpatient (REF) | payer MEDICARE, SELFPAY | LOC: RAD 10:48 | PROVIDERS: ATTENDING PHYSICIAN Internal Medicine Critical Care Medicine | DX: Z86.718 Personal history of other venous thrombosis and embolism (principal) | CPT/HCPCS: 93970 ==

== ENCOUNTER → 2024-03-29 10:27 | Outpatient (REF) | payer MEDICARE, SELFPAY ==
[2024-03-29 14:57] LABS: INR 1.28; PT 16.1 Sec (11.4-14.6)
[2024-03-29 14:58] LABS: APTT 41.9 Sec (23.4-35.0)
== END ==
LOC: RCS 10:27
PROVIDERS: ATTENDING PHYSICIAN Internal Medicine Critical Care Medicine; FAMILY PHYSICIAN Internal Medicine
DX: I82.402 Acute embolism and thrombosis of unspecified deep veins of left lower extremity (principal); Z01.812 Encounter for preprocedural laboratory examination
CPT/HCPCS: 36415; 85610; 85730; 93306; 93971

== ENCOUNTER 2024-04-03 16:59 | Inpatient (IN) | payer MEDICARE, SELFPAY ==
[2024-03-13 12:58] LABS: APTT 31.8 Sec (23.4-35.0)
[2024-04-03] VITALS (26 sets, daily range): BP systolic 66–124; BP diastolic 62–86; BMI 20.1; BMI 21.1
--- NOTE | 2024-04-03 15:37 | CON.PUL ---
Consultation
Consultation Request
Date/Time Consultation Requested: 04/03/2024
Date/Time Consultation Performed: 04/03/2024
Requesting Provider: Dr. Rod
Performing Provider: Dr. Ezra England
Reason for Consultation: Iatrogenic right pneumothorax
Medical History
-
History of Present Illness:
68-year-old man with history of head and neck cancer, status post PEG tube placement, status post therapy, follows up with Dr. Davies. He was discovered to have bilateral pulmonary nodules. Recommended to have tissue sampling.
Electively admitted for robotic bronchoscopy 04/03/2024. After the procedure on x-ray patient had a small pneumothorax. This was followed and from a small became moderate.
Patient was hemodynamically stable, not hypoxemic. Denied any chest pain.
I evaluated the patient in PACU, interventional radiology was contacted. Chest tube was ordered.
The internal medicine team was also consulted for admission to the hospital.
I discussed the patient with Dr. Nye, right lower lobe pulmonary nodule was not able to be biopsied due to lack of safe pathway. May need interventional radiology to tissue biopsy percutaneously during this admission.
Past Medical History
Past Medical History: Other (See assessment and plan section)
Social History
Tobacco: Non-smoker
Alcohol: None
Drug: None
Personal:
Living: With Family
Allergies / Home Medications
Allergies
Allergy/AdvReac Type Severity Reaction Status Date / Time
No Known Allergies Allergy Unverified 04/03/24 08:46
Home Medications
�Medication �Instructions �Recorded �Confirmed �Last Taken �Type
Isotonix Antioxidant Powder 1 dose PO DAILY Supplement 10/05/23 04/03/24 04/02/24 08:00 History
Isotonix B-Complex Powder 1 dose PO DAILY Supplement 10/05/23 04/03/24 04/02/24 08:00 History
Isotonix Calcium Plus Powder 1 dose PO DAILY Supplement 10/05/23 04/03/24 04/02/24 08:00 History
Isotonix Multivitamin Powder 1 dose PO DAILY Supplement 10/05/23 04/03/24 04/02/24 08:00 History
Isotonix Vitamin D3 Powder 1 dose PO DAILY Supplement 10/05/23 04/03/24 04/02/24 08:00 History
apixaban 5 mg tablet (Eliquis) 5 mg PO BID 03/30/24 04/03/24 03/31/24 History
megestrol 20 mg tablet 5 mg PO DAILY 03/30/24 04/03/24 04/01/24 History
Review of Systems
-
History Source: Patient
All other systems: Negative unless noted
Vitals / Labs / Diagnostic Testing
Vital Signs
Temp Pulse Resp BP Pulse Ox
97.4 F 77 16 105/82 98
04/03/24 12:20 04/03/24 15:00 04/03/24 15:00 04/03/24 15:00 04/03/24 15:00
Diagnostic Testing:
Physical Exam
-
HEENT: Normocephalic
Cardiovascular: S1/S2
Respiratory: Clear and Non-Labored Respirations
GI: Soft and Non Distended
Neurology: Awake, Oriented and AO x 3
Skin: Warm
General: Comfortable
Assessment
-
68-year-old man with history of head and neck cancer, on remission since 2021. Developed new pulmonary nodules compared to September 2023. Biopsy is recommended, bronchoscopy performed 04/03/2024. Patient developed a right pneumothorax that was
enlarging, recommended to have a chest tube placement and admission to the hospital for further care.
Iatrogenic right pneumothorax
Chest x-ray: Showed moderate-sized right pneumothorax 04/03/2024 reviewed
Multiple peripheral pulmonary nodules status post robotic bronchoscopy 04/03/2024.
Nodules are new compared to September 2023 imaging.
Conditions present prior admission:
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
Multiple pulmonary nodules
History of aspiration PEG tube placed in the past and removed.
History of pancytopenia
History of left lower extremity DVT
History of nasal bone fracture September 28, 2023
Depression
Hyperlipidemia
Chronic anemia
Depression
Admitted to the hospital 09/2023: Unresponsive episode possibly due to benzodiazepine.
Assessment and plan:
Right iatrogenic pneumothorax, enlarging post bronchoscopy. Patient hemodynamically stable, not hypoxemic.
Continue oxygen supplementation to assist reabsorption.
Interventional radiology consulted for chest tube placement.
Repeat chest x-ray in the morning
Will follow airleak.
Hopefully can consider discontinuation of chest tube in the next 24 hours if there is no significant air leak.
-
History of head and neck cancer-not on therapy since 2021-on remission. Follows up with Dr. Davies.
-
Discussed with Dr. Nye, primary bioinformatics programmer and bronchoscopist. He was not able to biopsy right lower lobe nodule due to lack of a safe pathway/.
Now with chest tube in place, will discuss with interventional radiology possibility of percutaneous biopsy of the right lower lobe peripheral nodule. Location is difficult as it is very close to the diaphragm.
-
Follow pathology/results from bronchoscopic intervention.
-
Patient with will be admitted under hospitalist. Pulmonary will continue to follow to assist in management. Case has been discussed.

Imaging reviewed:
CT chest abdomen and pelvis 02/22/2024:
Four new small nodular opacities in the lower lungs bilaterally: 1.7 X1.4X 1.2 cm subpleural nodular opacity in the right lower lobe, new subpleural left lower lobe nodular opacity 2.4 X1.5X 1.8 cm, subpleural nodular opacity medially on the right
lower lobe 1 cm.
Although
findings may represent focal atelectasis and/or pneumonia, pulmonary masses/metastatic disease
cannot be excluded. PET Scan with Dual Point [facility] could be obtained for more complete evaluation
although may be limited by the caudal position of these nodular opacities adjacent to the diaphragm.��
No suspicious mass or lymphadenopathy throughout the abdomen and pelvis.��
PET/CT: 03/11/2024
SKULL BASE/NECK:
No hypermetabolic cervical mass or adenopathy. Previously described slight asymmetric uptake in the soft tissues of the right posterolateral oropharynx is not reproduced on the current examination.
CHEST:
In the posterior right costophrenic angle, there is a masslike opacity now noted measuring 3.7 cm transverse by 1.6 cm AP. This appears to represent a confluence of individual nodular opacities present previously. Initial and delayed SUV max is 2.75
and 4, respectively.
In the posteromedial right costophrenic angle there is an 8 mm nodule, previously measuring 11 mm, relatively small for characterization. Initial and delayed SUV max of 1.9 and 2.5.
In the lateral right costophrenic angle there is a 6 mm nodule without associated FDG activity.
In the posterior left costophrenic angle there is a 1.8 cm nodular opacity, stable in size. Initial and delayed SUV max of 2.2 and 4.5, respectively.
No FDG avid hilar, mediastinal, or axillary mass or adenopathy.
ABDOMEN:
No mass or adenopathy with increased metabolic activity.
--- NOTE | 2024-04-03 15:43 | HPS.HSE ---
Family Physician
-
Family Physician: NO INTERVIEW UNKNOWN
Chief Complaint
-
Pneumothorax
History of Present Illness
Patient is 68 years old male with history of head and neck cancer, dyslipidemia, depression, presented to the hospital for bronchoscopy in the setting of workup for pulmonary nodules but develop pneumothorax postprocedure. Patient had developed
mild pneumothorax that quickly increased to moderate in a matter of a couple of hours therefore pulmonary recommended admission to the hospital and further management with chest tube. Patient does admit to having some shortness of breath overall,
no chest pain, no fevers or chills. Chest x-ray visualized. He was referred to hospitalist for further evaluation.
Medical History
Past Medical History
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
2022 HLD, nasal bone fracture September 28, 2023, hypomagnesemia)
Past Surgical History: Reports Other (PEG tube insertion November 2021 with removal 2022)
Social History
Tobacco: Non-smoker
Alcohol: None
Drug: None
Personal:
Living: With Family
Employment: Retired
Family History
Family History: Not pertinent
Allergies / Home Medications
Allergies reflects when Allergies were last updated in [email or web address].
Home Medications with original date entered in [email or web address]
Allergy/Medication List:
Allergies
Allergy/AdvReac Type Severity Reaction Status Date / Time
No Known Allergies Allergy Unverified 04/03/24 08:46
Home Medications
Isotonix Antioxidant Powder 1 dose PO DAILY Supplement 10/05/23
Isotonix B-Complex Powder 1 dose PO DAILY Supplement 10/05/23
Isotonix Calcium Plus Powder 1 dose PO DAILY Supplement 10/05/23
Isotonix Multivitamin Powder 1 dose PO DAILY Supplement 10/05/23
Isotonix Vitamin D3 Powder 1 dose PO DAILY Supplement 10/05/23
apixaban 5 mg tablet (Eliquis) 5 mg PO BID 03/30/24
megestrol 20 mg tablet 5 mg PO DAILY 03/30/24
Review of Systems
-
A 12 point ROS was completed and negative except as noted: Yes
Physical Exam
Vital Signs
Vital Signs
Temp Pulse Resp BP Pulse Ox
97.9 F 70 13 116/76 100
04/03/24 15:37 04/03/24 15:37 04/03/24 15:37 04/03/24 15:37 04/03/24 15:37
Physical exam:
General: Acute on chronically ill
HEENT: Normocephalic, Atraumatic and Moist Mucous Membranes
Respiratory: Decreased breath sounds on the right side; Negative Wheezes, Rales or Rhonchi
Cardiac: Regular Rhythm and S1/S2
GI: Soft, Nontender and Nondistended
Musculoskeletal: No Clubbing, No Cyanosis and No Edema
Neuro: Awake, Alert and Oriented
Psych: Calm
Physical Exam
General: Other
Laboratory Results
-
Laboratory Results
APTT 31.8 Sec (23.4-35.0) 03/13/24 11:52
Data Reviewed
-
Diagnostic Radiology: Image Personally Visualized and interpreted
Lab Data: Labs Reviewed by me
Impression/Plan
-
IMPRESSION:
Patient 68 years old male who underwent bronchoscopy today status post right pneumothorax. Patient will need to be admitted to the hospital given increased risk morbidity mortality due to postprocedural complication.
Impression:
Right pneumothorax, iatrogenic
Pulmonary nodules
Conditions prior to admission:
Head and neck cancer, SCC
Pancytopenia
DVT
Hyperlipidemia
Anemia
Depression
PLAN:
Admission to IMU given chest tube placement
Obtain basic labs
Seen and reviewed current CXR
IR consulted for chest tube placement as below
16F R chest tube placed without difficulty
CXR ordered for the the AM
Pulmonary consult
Defer to pulm about further w/u for pulm nodules
Oxygen as needed
Monitor respiratory status closely
Hold off anticoagulation
Pain meds--> tylenol and can use toradol since not using anticoagulation and discussed about narcotics but he wants to hold off on that unless absolutely needed.
SCDs for DVT prophylaxis
CODE STATUS full code
Time spent 75 minutes
--- NOTE | 2024-04-03 16:23 | W.PN.UPDATE ---
Update Note
Progress Note Update
16F R chest tube placed without difficulty
CXR ordered for the the AM
[2024-04-03 17:50] LABS: % Basophils 0.2 % (0-2); % Immature Granulocytes 0.4 % (0-0.5); % Lymphocytes 9.6 % (20.5-51.1); % Monocytes 1.6 % (1.7-9.3); % Neutrophils 88.2 % (42.2-75.2); Absolute Lymphocytes 0.4 10^3/uL (1.2-3.4); Absolute Monocytes 0.1 10^3/uL (0.1-0.6); Absolute Neutrophils 3.9 10^3/uL (1.4-6.5); Hemoglobin 12.2 g/dL (13.0-18.0); Mean Corp Hgb Conc. 34.9 g/dL (33.0-37.0); Mean Corpuscular Hgb 29.9 pg (27.0-31.0); Mean Corpuscular Volume 85.8 fL (80.0-94.0); Mean Platelet Volume 9.9 fL (7.4-10.4); Nucleated Red Blood Cells % 0 % (-); Platelet Count 136 10^3/uL (130-400); Red Blood Cell Count 4.08 10^6/uL (4.70-6.10); Red Cell Dist. Width 13.9 % (11.5-14.5); White Blood Cell Count 4.5 10^3/uL (4.8-10.8)
[2024-04-03 18:10] LABS: INR 1.12; PT 14.2 Sec (11.4-14.6)
--- NOTE | 2024-04-03 18:15 | PTCARENOTE ---
pT from IR with R chest tube to continuous suction. Red drainage. R power port accessed by VAT. AAOx3 pt forgetful at times and anxious. lings are diminished. DUBOSE no rsp distress. RA at bedside. Seen by DR Rod
[2024-04-03 18:16] LABS: ALT (SGPT) 24 U/L (0-50); AST (SGOT) 30 U/L (17-59); Albumin 3.7 g/dl (3.5-5.0); Alkaline Phosphatase 52 U/L (38-126); Blood Urea Nitrogen 12 mg/dl (9-20); Carbon Dioxide 25 mmol/L (22-30); Chloride 106 mmol/L (98-107); Estimated Creatinine Clearance 101 ml/min; Glucose 121 mg/dl (70-99); Sodium 135 mmol/L (135-145); Total Bilirubin 0.6 mg/dl (0.2-1.3); eGFR > 60.00
[2024-04-04] VITALS (12 sets, daily range): BP systolic 95–125; BP diastolic 65–89
--- NOTE | 2024-04-04 01:49 | PTCARENOTE ---
Pt received from day shift, AAOx3. R chest tube connected to continuous suction. Resting in bed with call genao in reach.
[2024-04-04 05:05] LABS: Hematocrit 34.1 % (39.0-52.0); Hemoglobin 11.9 g/dL (13.0-18.0); Mean Corp Hgb Conc. 34.9 g/dL (33.0-37.0); Mean Corpuscular Hgb 29.9 pg (27.0-31.0); Mean Corpuscular Volume 85.7 fL (80.0-94.0); Mean Platelet Volume 9.8 fL (7.4-10.4); Platelet Count 141 10^3/uL (130-400); Red Blood Cell Count 3.98 10^6/uL (4.70-6.10); Red Cell Dist. Width 13.8 % (11.5-14.5); White Blood Cell Count 5.8 10^3/uL (4.8-10.8)
[2024-04-04 05:26] LABS: Blood Urea Nitrogen 17 mg/dl (9-20); Carbon Dioxide 24 mmol/L (22-30); Chloride 107 mmol/L (98-107); Estimated Creatinine Clearance 100 ml/min; Glucose 94 mg/dl (70-99); Potassium 4.2 mmol/L (3.5-5.1); Sodium 134 mmol/L (135-145); eGFR > 60.00
[2024-04-04] MEDS: MEGACE ORAL SUSPENSION 625 MG PO (07:49)
[2024-04-04] MEDS: THERAGRAN 1 TABLET PO (07:52)
--- NOTE | 2024-04-04 09:14 | W.PN.PUL3 ---
Today's Communication / Plan
-
Clamped chest tube 9:26AM
Repeat chest x-ray at noon
Wait for interventional radiology opinion on whether biopsy kidney performed during this admission.
Assessment
-
68-year-old man with history of head and neck cancer, on remission since 2021. Developed new pulmonary nodules compared to September 2023. Biopsy is recommended, bronchoscopy performed 04/03/2024. Patient developed a right pneumothorax that was
enlarging, recommended to have a chest tube placement and admission to the hospital for further care.
Iatrogenic right pneumothorax
Chest x-ray: Showed moderate-sized right pneumothorax 04/03/2024 reviewed
Multiple peripheral pulmonary nodules status post robotic bronchoscopy 04/03/2024.
Nodules are new compared to September 2023 imaging.
Conditions present prior admission:
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
Multiple pulmonary nodules
History of aspiration PEG tube placed in the past and removed.
History of pancytopenia
History of left lower extremity DVT
History of nasal bone fracture September 28, 2023
Depression
Hyperlipidemia
Chronic anemia
Depression
Admitted to the hospital 09/2023: Unresponsive episode possibly due to benzodiazepine.
Assessment and plan:
Right iatrogenic pneumothorax, enlarging post bronchoscopy. Patient hemodynamically stable, not hypoxemic.
-
Stable overnight
Status post chest tube placement 04/03/2024
Chest x-ray 04/04/2024 reviewed, full reexpansion of the lung.
No significant air leak noted
Will clamp chest tube now, obtain chest x-ray in 3 hours, if chest x-ray without pneumothorax then will discontinue chest tube.
-
History of head and neck cancer-not on therapy since 2021-on remission. Follows up with Dr. Davies.
-
Discussed with Dr. Nye, primary building construction professor and bronchoscopist. He was not able to biopsy right lower lobe nodule due to lack of a safe pathway/.
Now with chest tube in place, will discuss with interventional radiology possibility of percutaneous biopsy of the right lower lobe peripheral nodule. Location is difficult as it is very close to the diaphragm.
Interventional radiology aware and it is evaluated whether this procedure can be done while patient is in the hospital.
-
Follow pathology/results from bronchoscopic intervention.
-
Will follow.
If no biopsy is able to be performed by interventional radiology, will consider discharge later today if stable

Imaging reviewed:
CT chest abdomen and pelvis 02/22/2024:
Four new small nodular opacities in the lower lungs bilaterally: 1.7 X1.4X 1.2 cm subpleural nodular opacity in the right lower lobe, new subpleural left lower lobe nodular opacity 2.4 X1.5X 1.8 cm, subpleural nodular opacity medially on the right
lower lobe 1 cm.
Although
findings may represent focal atelectasis and/or pneumonia, pulmonary masses/metastatic disease
cannot be excluded. PET Scan with Dual Point [facility] could be obtained for more complete evaluation
although may be limited by the caudal position of these nodular opacities adjacent to the diaphragm.��
No suspicious mass or lymphadenopathy throughout the abdomen and pelvis.��
PET/CT: 03/11/2024
SKULL BASE/NECK:
No hypermetabolic cervical mass or adenopathy. Previously described slight asymmetric uptake in the soft tissues of the right posterolateral oropharynx is not reproduced on the current examination.
CHEST:
In the posterior right costophrenic angle, there is a masslike opacity now noted measuring 3.7 cm transverse by 1.6 cm AP. This appears to represent a confluence of individual nodular opacities present previously. Initial and delayed SUV max is 2.75
and 4, respectively.
In the posteromedial right costophrenic angle there is an 8 mm nodule, previously measuring 11 mm, relatively small for characterization. Initial and delayed SUV max of 1.9 and 2.5.
In the lateral right costophrenic angle there is a 6 mm nodule without associated FDG activity.
In the posterior left costophrenic angle there is a 1.8 cm nodular opacity, stable in size. Initial and delayed SUV max of 2.2 and 4.5, respectively.
No FDG avid hilar, mediastinal, or axillary mass or adenopathy.
ABDOMEN:
No mass or adenopathy with increased metabolic activity.
Subjective Data
-
Date of Service:
Date of Service: April 04, 2024
Chief Complaint: Pulmonary Follow Up (Iatrogenic right pneumothorax)
Subjective:
No new complaints
Tolerated chest tube placement
Review of Systems
General: Fever (n)
Cardiopulmonary: Dyspnea (none at rest)
GI: Abdominal Pain (n) and Nausea (n)
Neuro: Headache (n)
Objective Data
Data Reviewed
Vital Signs / I&O / Oxygen:
Vital Signs
Temp Pulse Resp BP Pulse Ox
98.0 F 68 13 125/75 94
04/04/24 03:03 04/04/24 06:00 04/04/24 06:00 04/04/24 06:00 04/04/24 06:00
Intake and Output
04/03/24 04/04/24 04/05/24
06:59 06:59 06:59
Intake Total 680 / 680
Output Total 575 / 575
Balance 105 / 105
SaO2 94
Physical Exam
General: Respiratory Distress (n)
HEENT: Normocephalic
Cardiovascular: S1-S2
Respiratory: Clear, Non-Labored Respirations and Other (Chest tube in place, no airleak)
GI: Soft and Non Distended
Neurology: Awake and Alert
Skin: Warm
Labs/Micro/Reports
Lab Data
04/04/24 04:43
04/04/24 04:43
Laboratory Results
04/03/24
17:37
PT 14.2
INR 1.12
Microbiology
04/03/24 11:28 Bronch Right Lower Lobe Respiratory Culture - Preliminary
NO GROWTH
04/03/24 11:28 Bronch Right Lower Lobe Gram Stain - Preliminary
04/03/24 11:28 Bronch Left Lower Lobe Respiratory Culture - Preliminary
NO GROWTH
04/03/24 11:28 Bronch Left Lower Lobe Gram Stain - Preliminary
04/03/24 11:27 Bronchoalveolar Lavage Fungal Culture - Preliminary
Culture in progress.
Positive cultures are reported as soon as detected.
Final report to follow in four to five weeks.
04/03/24 11:27 Bronchoalveolar Lavage Fungal Culture - Preliminary
Culture in progress.
Positive cultures are reported as soon as detected.
Final report to follow in four to five weeks.
--- NOTE | 2024-04-04 09:19 | W.PN.HOSP.TC ---
Today's Communication/Plan
-
Chest tube care. Pulmonary follow-up
Assessment / Plan
Assessment / Plan
Physical exam:
General: Well Developed, Well Nourished and No Apparent Distress
HEENT: Normocephalic, Atraumatic and Moist Mucous Membranes
Respiratory: Chest tube in place. Clear to Auscultation; Negative Wheezes, Rales or Rhonchi
Cardiac: Regular Rhythm and S1/S2
GI: Soft, Nontender and Nondistended
Musculoskeletal: No Clubbing, No Cyanosis and No Edema
Neuro: Awake, Alert and Oriented
Psych: Calm
A/P:
Impression:
Right pneumothorax, iatrogenic
Pulmonary nodules
Conditions prior to admission:
Head and neck cancer, SCC
Pancytopenia
DVT
Hyperlipidemia
Anemia
Depression
PLAN:
Plan to clamp chest tube today and repeat chest x-ray
Possible removal of chest tube today
Plan for possible biopsy arrangement by pulmonary. On the other hand if not able to arrange a chest tube is out then discharge planning will take place.
Pulmonary consult appreciated--> discussed with pulmonary today and pulmonary will reach out to me in terms of future plans.
Defer to pulm about further w/u for pulm nodules
Oxygen as needed
Monitor respiratory status closely
Hold off anticoagulation
Pain meds--> tylenol and can use toradol since not using anticoagulation and discussed about narcotics but he wants to hold off on that unless absolutely needed.
SCDs for DVT prophylaxis
CODE STATUS full code
Anticipated Discharge: 24 - 48 hours
Subjective/Interval History
-
Date of Service: April 04, 2024
Denies any pain or shortness of breath. Afebrile
Objective Data
-
Labs:
Laboratory Results
04/04/24
04:43
WBC 5.8
Hgb 11.9 L
Hct 34.1 L
Plt Count 141
Sodium 134 L
Potassium 4.2
Chloride 107
Carbon Dioxide 24
BUN 17
Creatinine 0.7
Glucose 94
Calcium 9.0
Vital Signs:
Vital Signs
Temp Pulse Resp BP Pulse Ox
98.0 F 68 13 125/75 94
04/04/24 03:03 04/04/24 06:00 04/04/24 06:00 04/04/24 06:00 04/04/24 06:00
I&O
04/03/24 04/04/24 04/05/24
06:59 06:59 06:59
Intake Total 680 / 680
Output Total 575 / 575
Balance 105 / 105
--- NOTE | 2024-04-04 15:17 | W.PN.UPDATE ---
Update Note
Progress Note Update
Met with patient and his regarding options for lung biopsy. We offered chest tube removal today and returning as outpatient lung biopsy versus overnight admission and biopsy tomorrow with chest tube in place.
After reviewing risks and benefits of both options Mr. Yeung and his have decided to keep the chest tube in and have the biopsy performed tomorrow. He needs to be NPO after midnight
--- NOTE | 2024-04-04 16:41 | CM ---
Patient with Dx Right iatrogenic pneumothorax, enlarging post bronchoscopy. Room air. Chest tube. Plan biopsy tomorrow with chest tube in place.
Met with patient and , patient known from prior admission;
the patient resides with his in a 2 story house.
He was Independent ADLs/ambulation and has not had any recent falls.
No DME, prior VN or SNF.
PCP - Lila [facility]
Pharmacy - [facility]
Offered VN and patient declined.
The patient anticipates being discharged soon and says he feels ready to go home. IMM completed.
No CM d/c needs identified.
Plan home.
--- NOTE | 2024-04-04 20:59 | PTCARENOTE ---
Received pt at change of shift. Pt offers no complaints at this time. Chest tube in place on right side and clamped. Dressing C/D/I. Lungs diminished and CTA. Hygiene care provided. Resting in bed with call genao in reach.
[2024-04-05] VITALS (23 sets, daily range): BP systolic 60–137; BP diastolic 73–90
[2024-04-05] MEDS: MEGACE ORAL SUSPENSION PO (07:55)
[2024-04-05] MEDS: THERAGRAN PO (07:55)
--- NOTE | 2024-04-05 09:09 | W.PN.HOSP.TC ---
Today's Communication/Plan
-
Plan for biopsy today. Discharge planning if not later today possibly tomorrow depending on clinical course.
Assessment / Plan
Assessment / Plan
Physical exam:
General: Well Developed, Well Nourished and No Apparent Distress
HEENT: Normocephalic, Atraumatic and Moist Mucous Membranes
Respiratory: Chest tube in place. Clear to Auscultation; Negative Wheezes, Rales or Rhonchi
Cardiac: Regular Rhythm and S1/S2
GI: Soft, Nontender and Nondistended
Musculoskeletal: No Clubbing, No Cyanosis and No Edema
Neuro: Awake, Alert and Oriented
Psych: Calm
A/P:
Impression:
Right pneumothorax, iatrogenic
Pulmonary nodules
Conditions prior to admission:
Head and neck cancer, SCC
Pancytopenia
DVT
Hyperlipidemia
Anemia
Depression
PLAN:
Discussed with pulmonary today
X-ray results are improved.
Chest tube was left since they are planning for biopsy today.
Pulmonary consult appreciated
IR consult appreciated
Oxygen as needed
Monitor respiratory status closely
Hold off anticoagulation
Pain meds--> tylenol and can use toradol since not using anticoagulation and discussed about narcotics but he wants to hold off on that unless absolutely needed.
SCDs for DVT prophylaxis
CODE STATUS full code
Anticipated Discharge: 24 - 48 hours
Subjective/Interval History
-
Date of Service: April 05, 2024
Patient doing well. No chest pain or shortness of breath. 'Not in a good mood since waiting for biopsy'
Objective Data
-
Vital Signs:
Vital Signs
Temp Pulse Resp BP Pulse Ox
97.8 F 58 14 117/82 94
04/05/24 03:13 04/05/24 06:00 04/05/24 06:00 04/05/24 06:00 04/05/24 08:48
I&O
04/04/24 04/05/24 04/06/24
06:59 06:59 06:59
Intake Total 680 / 680
Output Total 575 / 575 1874
Balance 105 / 105 -1874 / -1874
--- NOTE | 2024-04-05 09:10 | PTCARENOTE ---
Pt is AAOx3, anxious re procedure today. Remains in RA with chest tube clamped. No s/s of distress NSR vss
--- NOTE | 2024-04-05 09:41 | W.PN.PUL3 ---
Today's Communication / Plan
-
CT-guided percutaneous biopsy of right lower lobe lung nodule today
Discontinue chest tube later today if there is no pneumothorax
Follow pathology results
Assessment
-
68-year-old man with history of head and neck cancer, on remission since 2021. Developed new pulmonary nodules compared to September 2023. Biopsy is recommended, bronchoscopy performed 04/03/2024. Patient developed a right pneumothorax that was
enlarging, recommended to have a chest tube placement and admission to the hospital for further care.
Iatrogenic right pneumothorax
Chest x-ray: Showed moderate-sized right pneumothorax 04/03/2024 reviewed
Multiple peripheral pulmonary nodules status post robotic bronchoscopy 04/03/2024.
Nodules are new compared to September 2023 imaging.
Conditions present prior admission:
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
Multiple pulmonary nodules
History of aspiration PEG tube placed in the past and removed.
History of pancytopenia
History of left lower extremity DVT
History of nasal bone fracture September 28, 2023
Depression
Hyperlipidemia
Chronic anemia
Depression
Admitted to the hospital 09/2023: Unresponsive episode possibly due to benzodiazepine.
Assessment and plan:
Right iatrogenic pneumothorax, enlarging post bronchoscopy. Patient hemodynamically stable, not hypoxemic.
-
On 04/04/2024: Chest tube was clamped. No recurrent pneumothorax.
Discussed with interventional radiology. Correspondence reviewed.
Patient opted to state overnight for possible percutaneous CT-guided biopsy of the right lower lobe pleural-based lung nodule.
Hopefully if there is no pneumothorax can discontinue chest tube later today.
-
History of head and neck cancer-not on therapy since 2021-on remission. Follows up with Dr. Davies.
-
Follow-up biopsy pathology results.
-
Hopefully discharge planning later today or tomorrow morning if there is any issues.
Outpatient pulmonary follow-up with Dr. Nye after discharge

Imaging reviewed:
CT chest abdomen and pelvis 02/22/2024:
Four new small nodular opacities in the lower lungs bilaterally: 1.7 X1.4X 1.2 cm subpleural nodular opacity in the right lower lobe, new subpleural left lower lobe nodular opacity 2.4 X1.5X 1.8 cm, subpleural nodular opacity medially on the right
lower lobe 1 cm.
Although
findings may represent focal atelectasis and/or pneumonia, pulmonary masses/metastatic disease
cannot be excluded. PET Scan with Dual Point Imaging could be obtained for more complete evaluation
although may be limited by the caudal position of these nodular opacities adjacent to the diaphragm.��
No suspicious mass or lymphadenopathy throughout the abdomen and pelvis.��
PET/CT: 03/11/2024
SKULL BASE/NECK:
No hypermetabolic cervical mass or adenopathy. Previously described slight asymmetric uptake in the soft tissues of the right posterolateral oropharynx is not reproduced on the current examination.
CHEST:
In the posterior right costophrenic angle, there is a masslike opacity now noted measuring 3.7 cm transverse by 1.6 cm AP. This appears to represent a confluence of individual nodular opacities present previously. Initial and delayed SUV max is 2.75
and 4, respectively.
In the posteromedial right costophrenic angle there is an 8 mm nodule, previously measuring 11 mm, relatively small for characterization. Initial and delayed SUV max of 1.9 and 2.5.
In the lateral right costophrenic angle there is a 6 mm nodule without associated FDG activity.
In the posterior left costophrenic angle there is a 1.8 cm nodular opacity, stable in size. Initial and delayed SUV max of 2.2 and 4.5, respectively.
No FDG avid hilar, mediastinal, or axillary mass or adenopathy.
ABDOMEN:
No mass or adenopathy with increased metabolic activity.
Subjective Data
-
Date of Service:
Date of Service: April 05, 2024
Chief Complaint: Pulmonary Follow Up (Iatrogenic right pneumothorax)
Subjective:
No complaints overnight
Chest tube remain in place as biopsies are scheduled for today.
Denies any chest discomfort
Review of Systems
Cardiopulmonary: Dyspnea (n) and Dyspnea on Exertion (n)
GI: Abdominal Pain (n) and Nausea (n)
Neuro: Headache (n)
Objective Data
Data Reviewed
Vital Signs / I&O / Oxygen:
Vital Signs
Temp Pulse Resp BP Pulse Ox
97.8 F 58 14 117/82 94
04/05/24 03:13 04/05/24 06:00 04/05/24 06:00 04/05/24 06:00 04/05/24 08:48
Intake and Output
04/04/24 04/05/24 04/06/24
06:59 06:59 06:59
Intake Total 680 / 680
Output Total 575 / 575 1874 / 1874
Balance 105 / 105 -1875 / -1875
SaO2 94
Physical Exam
General: Respiratory Distress (n)
HEENT: Normocephalic
Cardiovascular: S1-S2
Respiratory: Clear, Non-Labored Respirations and Other (Chest tube in place, no airleak)
GI: Soft and Non Distended
Neurology: Awake and Alert
Skin: Warm
Labs/Micro/Reports
Lab Data
04/04/24 04:43
04/04/24 04:43
Microbiology
04/03/24 11:28 Bronch Right Lower Lobe Respiratory Culture - Preliminary
NO GROWTH
04/03/24 11:28 Bronch Right Lower Lobe Gram Stain - Preliminary
04/03/24 11:28 Bronch Left Lower Lobe Respiratory Culture - Preliminary
NO GROWTH
04/03/24 11:28 Bronch Left Lower Lobe Gram Stain - Preliminary
04/03/24 11:27 Bronchoalveolar Lavage Fungal Culture - Preliminary
Culture in progress.
Positive cultures are reported as soon as detected.
Final report to follow in four to five weeks.
04/03/24 11:27 Bronchoalveolar Lavage Fungal Culture - Preliminary
Culture in progress.
Positive cultures are reported as soon as detected.
Final report to follow in four to five weeks.
--- NOTE | 2024-04-05 13:19 | PTCARENOTE ---
Ir called for pt awaiting transport.
[2024-04-06] VITALS (16 sets, daily range): BP systolic 109–132; BP diastolic 75–93
--- NOTE | 2024-04-06 03:14 | PTCARENOTE ---
Pt AAOx3, VSS. R chest tube to water seal with serosanguinous drainage in tubing. Dressing CDI. Pt denies complaints at this time. Resting comfortably in bed. Call genao within reach.
[2024-04-06 04:50] LABS: Hematocrit 34.2 % (39.0-52.0); Hemoglobin 12.3 g/dL (13.0-18.0); Mean Corpuscular Hgb 30.6 pg (27.0-31.0); Mean Corpuscular Volume 85.1 fL (80.0-94.0); Mean Platelet Volume 10.2 fL (7.4-10.4); Platelet Count 106 10^3/uL (130-400); Red Blood Cell Count 4.02 10^6/uL (4.70-6.10); Red Cell Dist. Width 13.8 % (11.5-14.5); White Blood Cell Count 4.1 10^3/uL (4.8-10.8)
[2024-04-06 05:46] LABS: Blood Urea Nitrogen 14 mg/dl (9-20); Calcium 8.9 mg/dl (8.4-10.2); Carbon Dioxide 24 mmol/L (22-30); Chloride 103 mmol/L (98-107); Estimated Creatinine Clearance 115 ml/min; Glucose 86 mg/dl (70-99); Potassium 3.8 mmol/L (3.5-5.1); Sodium 133 mmol/L (135-145); eGFR > 60.00
--- NOTE | 2024-04-06 07:30 | PTCARENOTE ---
Reported from night RN that chest tube clamped at 6 am as per MD order. Portable cxr to be done at [address] clamped. Patient denies any sob or trouble breathing. Spo2 95% on room air.
[2024-04-06] MEDS: THERAGRAN 1 TABLET PO (09:11)
[2024-04-06] MEDS: MEGACE ORAL SUSPENSION PO (09:11)
--- NOTE | 2024-04-06 09:13 | W.PN.HOSP.TC ---
Today's Communication/Plan
-
Discharge planning today.
Assessment / Plan
Assessment / Plan
Physical exam:
General: Well Developed, Well Nourished and No Apparent Distress
HEENT: Normocephalic, Atraumatic and Moist Mucous Membranes
Respiratory: Chest tube in place. Clear to Auscultation; Negative Wheezes, Rales or Rhonchi
Cardiac: Regular Rhythm and S1/S2
GI: Soft, Nontender and Nondistended
Musculoskeletal: No Clubbing, No Cyanosis and No Edema
Neuro: Awake, Alert and Oriented
Psych: Calm
A/P:
Impression:
Right pneumothorax, iatrogenic
Pulmonary nodules
Conditions prior to admission:
Head and neck cancer, SCC
Pancytopenia
DVT
Hyperlipidemia
Anemia
Depression
PLAN:
Discussed with pulmonary today and cleared for discharge after chest tube removal
Plan to discharge today once IR removed chest tube. Discussed with attending RN and RN director.
X-ray results no pneumothorax.
Status post CT-guided biopsy yesterday.
Appreciated IR consult
Oxygen as needed
Monitor respiratory status closely
Hold off anticoagulation but can resume upon discharge
Pain meds--> tylenol and can use toradol since not using anticoagulation and discussed about narcotics but he wants to hold off on that unless absolutely needed. Upon discharge can use Tylenol.
SCDs for DVT prophylaxis
CODE STATUS full code
Anticipated Discharge: Today
Subjective/Interval History
-
Date of Service: April 06, 2024
Patient no new complaints. Mild soreness.
Objective Data
-
Labs:
Laboratory Results
04/06/24
04:23
WBC 4.1 L
Hgb 12.3 L
Hct 34.2 L
Plt Count 106 L D
Sodium 133 L
Potassium 3.8
Chloride 103
Carbon Dioxide 24
BUN 14
Creatinine 0.6 L
Glucose 86
Calcium 8.9
Vital Signs:
Vital Signs
Temp Pulse Resp BP Pulse Ox
98.4 F 66 15 124/75 96
04/06/24 07:34 04/06/24 09:00 04/06/24 09:00 04/06/24 09:00 04/06/24 09:00
I&O
04/05/24 04/06/24 04/07/24
06:59 06:59 06:59
Intake Total 150 / 150
Output Total 1874 775 / 340 / 340
Balance -1874 / -1874 - / - -340 / -340
--- NOTE | 2024-04-06 10:10 | W.PN.PUL3 ---
Today's Communication / Plan
-
Remove chest tube today
ok to DC after removal if stable.
Follow path,
outpx follow with Dr. Nye
Sign off.
Assessment
-
68-year-old man with history of head and neck cancer, on remission since 2021. Developed new pulmonary nodules compared to September 2023. Biopsy is recommended, bronchoscopy performed 04/03/2024. Patient developed a right pneumothorax that was
enlarging, recommended to have a chest tube placement and admission to the hospital for further care.
Iatrogenic right pneumothorax
Chest x-ray: Showed moderate-sized right pneumothorax 04/03/2024 reviewed
Multiple peripheral pulmonary nodules status post robotic bronchoscopy 04/03/2024.
Nodules are new compared to September 2023 imaging.
Conditions present prior admission:
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
Multiple pulmonary nodules
History of aspiration PEG tube placed in the past and removed.
History of pancytopenia
History of left lower extremity DVT
History of nasal bone fracture September 28, 2023
Depression
Hyperlipidemia
Chronic anemia
Depression
Admitted to the hospital 09/2023: Unresponsive episode possibly due to benzodiazepine.
Assessment and plan:
Right iatrogenic pneumothorax, enlarging post bronchoscopy. Patient hemodynamically stable, not hypoxemic.
-
On 04/04/2024: Chest tube was clamped. No recurrent pneumothorax.
s/p CT guided percutaneous bx of RLL nodule
path pending
CXR 04/06/2024: reviewed,no PTX
No airleak on chamber.
will ask IR to remove chest tube.
-
History of head and neck cancer-not on therapy since 2021-on remission. Follows up with Dr. Davies.
-
Follow-up biopsy pathology results.
-
Hopefully discharge planning later today or tomorrow morning if there is any issues.
Outpatient pulmonary follow-up with Dr. Nye after discharge
-
Can DC after chest tube removal.
Will sign off.

Imaging reviewed:
CT chest abdomen and pelvis 02/22/2024:
Four new small nodular opacities in the lower lungs bilaterally: 1.7 X1.4X 1.2 cm subpleural nodular opacity in the right lower lobe, new subpleural left lower lobe nodular opacity 2.4 X1.5X 1.8 cm, subpleural nodular opacity medially on the right
lower lobe 1 cm.
Although
findings may represent focal atelectasis and/or pneumonia, pulmonary masses/metastatic disease
cannot be excluded. PET Scan with Dual Point Imaging could be obtained for more complete evaluation
although may be limited by the caudal position of these nodular opacities adjacent to the diaphragm.��
No suspicious mass or lymphadenopathy throughout the abdomen and pelvis.��
PET/CT: 03/11/2024
SKULL BASE/NECK:
No hypermetabolic cervical mass or adenopathy. Previously described slight asymmetric uptake in the soft tissues of the right posterolateral oropharynx is not reproduced on the current examination.
CHEST:
In the posterior right costophrenic angle, there is a masslike opacity now noted measuring 3.7 cm transverse by 1.6 cm AP. This appears to represent a confluence of individual nodular opacities present previously. Initial and delayed SUV max is 2.75
and 4, respectively.
In the posteromedial right costophrenic angle there is an 8 mm nodule, previously measuring 11 mm, relatively small for characterization. Initial and delayed SUV max of 1.9 and 2.5.
In the lateral right costophrenic angle there is a 6 mm nodule without associated FDG activity.
In the posterior left costophrenic angle there is a 1.8 cm nodular opacity, stable in size. Initial and delayed SUV max of 2.2 and 4.5, respectively.
No FDG avid hilar, mediastinal, or axillary mass or adenopathy.
ABDOMEN:
No mass or adenopathy with increased metabolic activity.
Subjective Data
-
Date of Service:
Date of Service: April 06, 2024
Chief Complaint: Pulmonary Follow Up (Iatrogenic right pneumothorax)
Subjective:
No significant complaints.
Stable overnight.
Review of Systems
Cardiopulmonary: Dyspnea (n) and Dyspnea on Exertion (n)
GI: Abdominal Pain (n) and Nausea (n)
Objective Data
Data Reviewed
Vital Signs / I&O / Oxygen:
Vital Signs
Temp Pulse Resp BP Pulse Ox
98.4 F 66 15 124/75 96
04/06/24 07:34 04/06/24 09:00 04/06/24 09:00 04/06/24 09:00 04/06/24 09:00
Intake and Output
04/05/24 04/06/24 04/07/24
06:59 06:59 06:59
Intake Total 150 / 150
Output Total 1875 / 1875 775 / 775 340 / 340
Balance -1875 / -1875 -625 / -625 -340 / -340
SaO2 96
Physical Exam
General: Respiratory Distress (n)
HEENT: Normocephalic
Cardiovascular: S1-S2
Respiratory: Clear, Non-Labored Respirations and Other (Chest tube in place, no airleak)
GI: Soft and Non Distended
Neurology: Awake and Alert
Skin: Warm
Labs/Micro/Reports
Lab Data
04/06/24 04:23
04/06/24 04:23
Microbiology
04/03/24 11:27 Bronchoalveolar Lavage Acid Fast Bacilli Smear - Preliminary
04/03/24 11:27 Bronchoalveolar Lavage Acid Fast Bacilli Culture - Preliminary
04/03/24 11:27 Bronchoalveolar Lavage Acid Fast Bacilli Smear - Preliminary
04/03/24 11:27 Bronchoalveolar Lavage Acid Fast Bacilli Culture - Preliminary
04/03/24 11:28 Bronch Left Lower Lobe Respiratory Culture - Final
NO GROWTH
04/03/24 11:28 Bronch Left Lower Lobe Gram Stain - Final
04/03/24 11:28 Bronch Right Lower Lobe Respiratory Culture - Final
NO GROWTH
04/03/24 11:28 Bronch Right Lower Lobe Gram Stain - Final
04/03/24 11:27 Bronchoalveolar Lavage Fungal Culture - Preliminary
Culture in progress.
Positive cultures are reported as soon as detected.
Final report to follow in four to five weeks.
04/03/24 11:27 Bronchoalveolar Lavage Fungal Culture - Preliminary
Culture in progress.
Positive cultures are reported as soon as detected.
Final report to follow in four to five weeks.
--- NOTE | 2024-04-06 13:24 | W.DCSUMMARY ---
Discharge Summary
Discharge Data
Date of Admission: 04/03/24
Date of Discharge: 04/06/24
-
Pending Results: No
Hospital Course
Patient is 69 years old male history of head and neck cancer in the past, bilateral pulmonary nodules, presented to the hospital for pneumothorax after bronchoscopy. Patient had elective robotic bronchoscopy for pulmonary nodules and he developed
pneumothorax that quickly grew from small to moderate size the same day postprocedure and was admitted to the hospital. Pulmonary consulted. IR consulted. Patient had a chest tube placed. Follow-up chest x-ray revealed clearance of the
pneumothorax. Later on IR did a CT guidance biopsy of the right lower lobe nodule successfully and biopsy results will be follow-up as outpatient. Patient chest tube was removed today. Otherwise, patient hemodynamically stable, afebrile, he is
back to his baseline and he is eager to go home. Pulmonary has cleared him for discharge. IR has cleared him for discharge. He will be discharged in stable condition today.
Discharge duration: 35 minutes
Discharge Plan
-
Patient Disposition: Home (Routine Discharge)
Discharge Diagnosis/Procedures: Iatrogenic right pneumothorax post bronchoscopy. Pulmonary nodules.
Diet: Low Cholesterol
Activity: As tolerated
Blood Work: Please PCP to order CBC, BMP within 1 week
Referrals:
Primary care, provider [Other] (See less than 1 week)
Allen Nye MD [Active] - in two to four weeks
Prescriptions:
Continued
Isotonix Antioxidant Powder
1 dose PO DAILY
Isotonix B-Complex Powder
1 dose PO DAILY
Isotonix Calcium Plus Powder
1 dose PO DAILY
Isotonix Multivitamin Powder
1 dose PO DAILY
Isotonix Vitamin D3 Powder
1 dose PO DAILY
Eliquis 5 mg Tablet
5 mg PO BID
megestrol 625 mg/5 mL (125 mg/mL) Suspension
5 ml PO DAILY
Discharge Orders:
Discharge Patient (As Directed); Ordered 04/06/24
Ordered By: Jean-Claude Rod
Discharge Date and Time
Discharge Date/Time: 04/06/24 16:32
Print Language: [place]
--- NOTE | 2024-04-06 14:36 | PTCARENOTE ---
Patient off unit to IR for chest tube removal. Plan to be discharged afterwards.
--- NOTE | 2024-04-06 14:48 | PN.IRAD.UPD ---
Update Note - IRAD
- -
Right chest tube removed bedside in IRAD. Site cleaned and dressed with vaseline gauze and occlusive dressing. Follow up CXR will be done per .
--- NOTE | 2024-04-06 15:01 | PTCARENOTE ---
NIRANJAN RN- right chest tube removed bedside by Radha Mena RTR. vaseline gauze dressing applied. patient instructed to keep dressing in place x 2 days. post CXR completed. no pneumothorax per Dr. Keene. patient updated.
--- NOTE | 2024-04-06 15:44 | VATNOTE ---
right sub q port deaccessed per protocol with brisk blood return noted prior to.
--- NOTE | 2024-04-06 15:45 | PTCARENOTE ---
Patient back from IR. Chest tube removed. Dressing C/D/I. Vital signs stable ( SEE WORK LIST) Patient to be discharged to home.
== END 2024-04-06 16:32 | disposition home or self-care (01) | DRG 168 ==
LOC: IMU 16:59
PROVIDERS: Internal Medicine Critical Care Medicine; Radiology Diagnostic Radiology; ADMITTING PHYSICIAN Hospitalist; CONSULT PHYSICIAN Internal Medicine Critical Care Medicine
PROC: 0BBJ8ZX Excision of Left Lower Lung Lobe, Via Natural or Artificial Opening Endoscopic, Diagnostic (ICD-10-PCS; 2024-04-03)
PROC: 0BDF8ZX Extraction of Right Lower Lung Lobe, Via Natural or Artificial Opening Endoscopic, Diagnostic (ICD-10-PCS; 2024-04-03)
PROC: 0BDJ8ZX Extraction of Left Lower Lung Lobe, Via Natural or Artificial Opening Endoscopic, Diagnostic (ICD-10-PCS; 2024-04-03)
PROC: 0B9J8ZX Drainage of Left Lower Lung Lobe, Via Natural or Artificial Opening Endoscopic, Diagnostic (ICD-10-PCS; 2024-04-03)
PROC: 0W9930Z Drainage of Right Pleural Cavity with Drainage Device, Percutaneous Approach (ICD-10-PCS; 2024-04-03)
PROC: 0B9F8ZX Drainage of Right Lower Lung Lobe, Via Natural or Artificial Opening Endoscopic, Diagnostic (ICD-10-PCS; 2024-04-03)
PROC: 0BBF3ZX Excision of Right Lower Lung Lobe, Percutaneous Approach, Diagnostic (ICD-10-PCS; 2024-04-06)
DX: J95.811 Postprocedural pneumothorax (principal); D64.9 Anemia, unspecified; F32.9 Major depressive disorder, single episode, unspecified; R91.8 Other nonspecific abnormal finding of lung field; E78.5 Hyperlipidemia, unspecified; R06.02 Shortness of breath; Z92.3 Personal history of irradiation; Z92.21 Personal history of antineoplastic chemotherapy; Z85.89 Personal history of malignant neoplasm of other organs and systems; Z86.718 Personal history of other venous thrombosis and embolism; Z87.81 Personal history of (healed) traumatic fracture
CPT/HCPCS: 88172; 88173; 88305; 32408; 32557; 36415; 71045; 76000; 80048; 80053; 85025; 85027; 85610; 85730; 87015; 87070; 87102; 87116; 87205; 88112; 88333; 94640; 99152; C1729; C1769; C1887

== ENCOUNTER → 2024-05-31 15:22 | Outpatient (REF) | payer MEDICARE, SELFPAY | LOC: RAD 15:22 | PROVIDERS: ATTENDING PHYSICIAN Internal Medicine Critical Care Medicine; FAMILY PHYSICIAN Internal Medicine | DX: R91.8 Other nonspecific abnormal finding of lung field (principal) | CPT/HCPCS: 71250; 93971 ==

== ENCOUNTER → 2024-10-20 14:31 | Outpatient (REF) | payer MEDICARE, SELFPAY | LOC: REG 14:31 | PROVIDERS: ATTENDING PHYSICIAN Otolaryngology; FAMILY PHYSICIAN Otolaryngology | DX: C01 Malignant neoplasm of base of tongue (principal) | CPT/HCPCS: 36415; 82565 ==

== ENCOUNTER → 2024-10-24 13:52 | Outpatient (REF) | payer MEDICARE, SELFPAY | LOC: RAD 13:52 | PROVIDERS: ATTENDING PHYSICIAN Otolaryngology; FAMILY PHYSICIAN Internal Medicine; OTHER PHYSICIAN Otolaryngology | DX: C01 Malignant neoplasm of base of tongue (principal) | CPT/HCPCS: 70491; Q9967 ==

== ENCOUNTER → 2024-12-20 14:15 | Outpatient (REF) | payer OTHER, SELFPAY ==
[2024-12-20 14:57] LABS: % Basophils 0.2 % (0-2); % Eosinophils 0.4 % (0-6); % Immature Granulocytes 0.4 % (0-0.5); % Lymphocytes 13.1 % (20.5-51.1); % Monocytes 6.1 % (1.7-9.3); % Neutrophils 79.8 % (42.2-75.2); Absolute Lymphocytes 0.6 10^3/uL (1.2-3.4); Absolute Monocytes 0.3 10^3/uL (0.1-0.6); Absolute Neutrophils 3.9 10^3/uL (1.4-6.5); Hematocrit 41.3 % (39.0-52.0); Hemoglobin 13.8 g/dL (13.0-18.0); Mean Corp Hgb Conc. 33.4 g/dL (33.0-37.0); Mean Corpuscular Hgb 30.3 pg (27.0-31.0); Mean Corpuscular Volume 90.8 fL (80.0-94.0); Mean Platelet Volume 9.8 fL (7.4-10.4); Nucleated Red Blood Cells % 0 % (-); Platelet Count 146 10^3/uL (130-400); Red Blood Cell Count 4.55 10^6/uL (4.70-6.10); Red Cell Dist. Width 13.9 % (11.5-14.5); White Blood Cell Count 4.9 10^3/uL (4.8-10.8)
[2024-12-20 16:15] LABS: ALT (SGPT) 25 U/L (0-50); AST (SGOT) 39 U/L (17-59); Albumin 4.4 g/dl (3.5-5.0); Alkaline Phosphatase 55 U/L (38-126); Blood Urea Nitrogen 17 mg/dl (9-20); Carbon Dioxide 30 mmol/L (22-30); Chloride 102 mmol/L (98-107); Glucose 90 mg/dl (70-99); Potassium 5.2 mmol/L (3.5-5.1); Sodium 139 mmol/L (135-145); Total Bilirubin 0.8 mg/dl (0.2-1.3); Total Protein 6.6 g/dl (6.3-8.2); eGFR > 60.00
== END ==
LOC: REG 14:15
PROVIDERS: ATTENDING PHYSICIAN Internal Medicine Hematology & Oncology; FAMILY PHYSICIAN Internal Medicine
DX: C14.8 Malignant neoplasm of overlapping sites of lip, oral cavity and pharynx (principal); R53.82 Chronic fatigue, unspecified; D50.9 Iron deficiency anemia, unspecified; D21.9 Benign neoplasm of connective and other soft tissue, unspecified
CPT/HCPCS: 36415; 80053; 85025

== ENCOUNTER → 2024-12-21 15:16 | Outpatient (REF) | payer OTHER, SELFPAY | LOC: RAD 15:16 | PROVIDERS: ATTENDING PHYSICIAN Internal Medicine Hematology & Oncology; FAMILY PHYSICIAN Internal Medicine; OTHER PHYSICIAN Internal Medicine Critical Care Medicine; OTHER PHYSICIAN Nurse Practitioner Adult Health | DX: C14.8 Malignant neoplasm of overlapping sites of lip, oral cavity and pharynx (principal); R53.82 Chronic fatigue, unspecified; D50.9 Iron deficiency anemia, unspecified; D51.9 Vitamin B12 deficiency anemia, unspecified | CPT/HCPCS: 71260; Q9967 ==

== ENCOUNTER → 2025-01-31 17:18 | Outpatient (REF) | payer OTHER, SELFPAY | LOC: RADI 17:18 | PROVIDERS: ATTENDING PHYSICIAN Internal Medicine Hematology & Oncology; FAMILY PHYSICIAN Radiology Radiation Oncology | DX: Z45.2 Encounter for adjustment and management of vascular access device (principal); C14.8 Malignant neoplasm of overlapping sites of lip, oral cavity and pharynx | CPT/HCPCS: 36590; 77001 ==

== ENCOUNTER → 2025-07-05 14:16 | Outpatient (REF) | payer OTHER, SELFPAY ==
[2025-07-05 14:53] LABS: Hematocrit 39.3 % (39.0-52.0); Hemoglobin 12.9 g/dL (13.0-18.0); Mean Corp Hgb Conc. 32.8 g/dL (33.0-37.0); Mean Corpuscular Volume 90.3 fL (80.0-94.0); Nucleated Red Blood Cells % 0 % (-); Platelet Count 155 10^3/uL (130-400); Red Cell Dist. Width 14.0 % (11.5-14.5)
[2025-07-05 15:20] LABS: ALT (SGPT) 17 U/L (0-50); AST (SGOT) 31 U/L (17-59); Albumin 3.9 g/dl (3.5-5.0); Alkaline Phosphatase 43 U/L (38-126); Blood Urea Nitrogen 20 mg/dl (9-20); Calcium 9.5 mg/dl (8.4-10.2); Carbon Dioxide 31 mmol/L (22-30); Chloride 101 mmol/L (98-107); Glucose 93 mg/dl (70-99); Potassium 5.4 mmol/L (3.5-5.1); Sodium 137 mmol/L (135-145); Total Protein 6.4 g/dl (6.3-8.2); eGFR > 60.00
[2025-07-05 15:49] LABS: TSH 2.84 uIU/ml (0.47-4.68)
== END ==
LOC: REG 14:16
PROVIDERS: ATTENDING PHYSICIAN Internal Medicine Hematology & Oncology; FAMILY PHYSICIAN Internal Medicine
DX: C18.4 Malignant neoplasm of transverse colon (principal); R53.82 Chronic fatigue, unspecified; D50.9 Iron deficiency anemia, unspecified; D51.9 Vitamin B12 deficiency anemia, unspecified
CPT/HCPCS: 36415; 71046; 80053; 84443; 85025

== ENCOUNTER 2025-08-29 10:59 | Emergency (ER) | payer OTHER, SELFPAY ==
[2025-08-29 11:06] VITALS: BP 104/73
--- NOTE | 2025-08-29 11:15 | EDRN ---
Received patient on stretcher. Patient stated that he tripped on carpet in the bathroom and fell hitting the back of his head. Denies LOC,dizziness and headache. Denies any neck or back pain.
--- NOTE | 2025-08-29 12:11 | ED.GENMED ---
History of Present Illness
General
Chief Complaint: Head Injury
Source: patient
Exam Limitations: none
Time Seen by Provider: 08/29/25 11:28
Nursing documentation reviewed up to this point in time: agreed with
History of Present Illness
History of Present Illness:
70-year-old male presenting to the emergency department today with concerns of slip and fall where hit the back of his head in the bathroom earlier today. Did not lose consciousness not on blood thinners. Did have a cut to the back of his head and
did have some bleeding. is also concerned that he has been eating less recently and has been somewhat depressed though he denies any thoughts of harming himself or others.
Past History
Past History
ED Past Medical History: Cancer (head and neck)
ED Past Surgical History: Other (PEG tube, port placed)
Social History
Tobacco: Non-smoker
Alcohol: None
Drug: None
Personal:
Living: with family
Review of Systems
Review of Systems
Allergies reviewed?: Yes
All Other Systems: ROS reviewed and negative except as documented in HPI and ROS
Phy Exam
Physical Exam
Physical Exam:
GENERAL: Alert , in no apparent distress
EYE: pupils equal and reactive
NECK: Supple, no significant adenopathy.
ENT: Superficial abrasion to the occipital scalp. o/p clr, mmm.
CARDIAC: Regular rate and rhythm .
LUNGS: Clear breath sounds bilaterally, no acute respiratory distress, no wheezes/rales/rhonchi
ABDOMEN: Soft, without focal tenderness, no r/g, no cvat
NEUROLOGICAL: Alert and oriented, no focal neuro deficits
SKIN: Warm and dry, skin intact.
MUSCULOSKELETAL: No edema, well perfused.
PSYCH: Normal and appropriate interaction.
Course
Orders/Labs/Results
Orders:
Orders
08/29/25 11:53
EKG [Electrocardiogram (*1)] Urgent
Reason for Study: Fatigue / Weakness
CT Cervical Spine W/o Iv Contr Urgent
Comment:
Reason For Exam: fall hit back of head
CT Head W/o Iv Contrast Urgent
Comment:
Reason For Exam: fall hit back of head
EKG- Treatment ONCE
08/29/25 12:10
Crisis Consult Urgent
Reason for Consult: depression, severe
08/29/25 12:46
CBC/With Diff [Complete Blood Count/With Diff] Urgent
CMP [Comprehensive Metabolic Panel] Urgent
Abnormal Lab Results
08/29/25
12:46
WBC 4.2 L 10^3/uL
(4.8-10.8)
RBC 4.22 L 10^6/uL
(4.70-6.10)
Hgb 12.5 L g/dL
(13.0-18.0)
Hct 36.2 L %
(39.0-52.0)
Absolute Lymphs (auto) 0.5 L 10^3/uL
(1.2-3.4)
Immature Gran % 0.7 H %
(0-0.5)
Neutrophils % 81.6 H %
(42.2-75.2)
Lymphocytes % 12.1 L %
(20.5-51.1)
Sodium 132 L mmol/L
(135-145)
Creatinine 0.6 L mg/dL
(0.7-1.3)
Total Protein 6.2 L g/dl
(6.3-8.2)
08/29/25 12:46
08/29/25 12:46
Vital Signs
Initial and Last Documented VS:
Initial Vital Signs
Temp Pulse Resp BP Pulse Ox
97.8 F 69 16 104/73 96
08/29/25 11:06 08/29/25 11:06 08/29/25 11:06 08/29/25 11:06 08/29/25 11:06
Last Documented Vital Signs
Temp Pulse Resp BP Pulse Ox
97.8 F 69 16 104/73 96
08/29/25 11:06 08/29/25 11:06 08/29/25 11:06 08/29/25 11:06 08/29/25 12:14
MDM/Problems Addressed
MDM/Problems Addressed:
70-year-old male presenting to the emergency department after slip and fall earlier today hit the back of his head did not lose consciousness not on blood thinners. Considering his advanced age CT scan was ordered for further assessment.
Additionlly the of the patient was concerned that he is been eating less and depressed thus we did get additional labs for assessment. CT and labs without emergent findings stable for discharge at this time. Return precautions given.
*Pulse Oximetry
SaO2: 96
Oxygen Mode of Delivery: Room air
Patient hypoxic: no (99)
*Critical Care Note
Total Time (30-74mins, 75-104mins- exclusive of procedures): Not Applicable
ED Attending Note
-
Portions of this chart may have been created with voice recognition software.� Occasional wrong word or��sound alike� substitutions may have occurred due to the inherent limitations of voice recognition software.
Discharge Plan
Departure
Patient Disposition: Home (Routine Discharge)
Date of Disposition: 08/29/25
Time of Disposition: 14:10
Patient with high blood pressure during this ER visit?: No
Condition: Good
Covid-19: Not Applicable
Discharge Problem:
Fall, Abrasion of skin
Instructions: Wound Care (DC)
Prescriptions:
No Action
No Current Medications
0
Referrals:
Sergio Sharp MD [Family Provider, Internal Medicine]
Activity Restrictions/Additional Instructions:
You came to the emergency department today after a fall. Here due to reassuring assessment. Please follow-up closely as an outpatient with your primary care team. Return for any worsening, new or concerning symptoms.
Interventions
Interventions:
*General Assessment Last Done: 08/29/25 11:14
*Neglect/Abuse Screening Last Done: 08/29/25 11:06
*ED COVID-19 Vaccine History Last Done: 08/29/25 11:06
*ED Influenza Vaccine History Last Done: 08/29/25 11:12
[facility] Fall Risk Assessment Tool Last Done: 08/29/25 11:12
*Risk Screen - Suicide (C-SSRS) Last Done: 08/29/25 11:06
ED- Neurological Assessment Last Done: 08/29/25 11:12
ED-Skin Assessment Last Done: 08/29/25 11:12
Discharge Date and Time
Print Language: [place]
[2025-08-29 12:52] LABS: Hematocrit 36.2 % (39.0-52.0); Hemoglobin 12.5 g/dL (13.0-18.0); Mean Corp Hgb Conc. 34.5 g/dL (33.0-37.0); Mean Corpuscular Volume 85.8 fL (80.0-94.0); Nucleated Red Blood Cells % 0 % (-); Platelet Count 141 10^3/uL (130-400); Red Cell Dist. Width 14.1 % (11.5-14.5)
[2025-08-29 13:11] LABS: ALT (SGPT) 21 U/L (0-50); AST (SGOT) 33 U/L (17-59); Albumin 3.7 g/dl (3.5-5.0); Alkaline Phosphatase 44 U/L (38-126); Blood Urea Nitrogen 18 mg/dl (9-20); Calcium 8.8 mg/dl (8.4-10.2); Carbon Dioxide 27 mmol/L (22-30); Chloride 104 mmol/L (98-107); Estimated Creatinine Clearance 112 ml/min; Glucose 84 mg/dl (70-99); Potassium 3.8 mmol/L (3.5-5.1); Sodium 132 mmol/L (135-145); Total Protein 6.2 g/dl (6.3-8.2); eGFR > 60.00
[2025-08-29 14:00] VITALS: BP 118/70
--- NOTE | 2025-08-29 14:40 | EDRN ---
Reviewed discharge instructions with patient. Verbalized understanding. Taken to lobby in wheelchair.
[2025-08-29 15:31] VITALS: BP 115/72
== END 2025-08-29 14:45 | disposition home or self-care (01) ==
LOC: EMR 10:59
PROVIDERS: Physician Assistant; EMERGENCY PHYSICIAN Student in an Organized Health Care Education/Training Program; FAMILY PHYSICIAN Internal Medicine
DX: S09.90XA Unspecified injury of head, initial encounter (principal); W01.10XA Fall on same level from slipping, tripping and stumbling with subsequent striking against unspecified object, initial encounter; Y92.002 Bathroom of unspecified non-institutional (private) residence as the place of occurrence of the external cause; R53.1 Weakness; R53.83 Other fatigue; F32.A Depression, unspecified
CPT/HCPCS: 99285; 70450; 72125; 80053; 85025; 93005